=== PATIENT | male | born 1940 | race Caucasian/White ===

== ENCOUNTER → 2018-03-28 | Outpatient (CLI) | payer OTHER ==
[~2018-03-28] MED LIST: ASPEC325 PO; B-CO-25 PO; CHOL100010 PO; CLB200 PO; ESTER C PO; MULTTAB PO; OXYSR10 PO; RXC5 PO; TADA5TAB11 PO; TAMS0.4C38 PO
--- NOTE | 2018-04-11 13:01 | CODING QUERY NO DIAGNOSIS ---
TREATMENT RENDERED WITHOUT A DIAGNOSIS To promote full compliance with coding requirements relating to patient care, physician participation is requested in all cases of skiff operator uncertainty. Please assist us with providing a diagnosis/symptom for the test(s) below: A diagnosis/symptom was not documented on your Order. A valid diagnosis/symptom is required to bill all insurances. Please remember that we are unable to code a diagnosis of rule out, probable, possible, questionable, or suspected. Tests that require a diagnosis: DOS: 03/28/18 * FECAL GLOBIN (INSURE) DIAGNOSIS: Provider Signature: Date: Thank you Miriam Alvarez [employer] Information Management Once completed, please kindly fax back to [phone] For questions please call [phone]
== END | disposition home or self-care (01) ==
LOC: C.LABSPEC 06:54
PROVIDERS: ATTEND Family Medicine
DX: D64.9 Anemia, unspecified (principal)

== ENCOUNTER → 2018-04-06 | Outpatient (CLI) | payer OTHER ==
[2018-04-06 12:33] LABS: BASO % 0.4 %; BASO ABS # 0.02 K/uL (0-0.2); EOS % 2.1 %; EOS ABS # 0.11 K/uL (0-0.5); HEMATOCRIT 34.6 % (42-52); HEMOGLOBIN 11.5 g/dL (14.0-18.0); IG# 0.01 K/uL (0.00-0.02); LYMPH ABS # 1.38 K/uL (1.2-3.4); MEAN CELL VOLUME 88.9 fL (80-100); MEAN CORPUSCULAR HEMOGLOBIN 29.6 pg (25-34); MEAN CORPUSCULAR HGB CONC 33.2 g/dl (32-36); MEAN PLATELET VOLUME 9.9 fL (7.4-10.4); MONO % 8.9 %; MONO ABS # 0.47 K/uL (0.11-0.59); NEUT % 62.4 %; NEUT ABS # 3.31 K/uL (1.4-6.5); PLATELET COUNT 178 K/uL (130-400); RED CELL DISTRIBUTION WIDTH CV 12.9 % (11.5-14.5); RED CELL DISTRIBUTION WIDTH SD 41.3 fL (36.4-46.3)
== END | disposition home or self-care (01) ==
LOC: C.LABMFLN 07:10
PROVIDERS: ATTEND Family Medicine
DX: D64.9 Anemia, unspecified (principal)

== ENCOUNTER 2021-11-09 19:24 | Inpatient (IN) ==
[2021-11-09] MEDS ORDERED: SODIUM CHLORIDE 0.9% 500 ML IV STA (19:56)
[2021-11-09 20:22] LABS: Hematocrit (blood only) 28.5 % (42-52); Hemoglobin 9.4 g/dL (14.0-18.0); Immature Granulocytes # (auto) 0.04 K/uL (0.00-0.02); Immature Granulocytes % (auto) 0.3 %; Lymphocytes # (auto) 0.73 K/uL (1.2-3.4); Lymphocytes % (auto) 5.1 %; Mean Corpuscular Hemoglobin 28.7 pg (25-34); Mean Corpuscular Volume 86.9 fL (80-100); Mean Platelet Volume 8.6 fL (7.4-10.4); Monocytes # (auto) 0.77 K/uL (0.11-0.59); Monocytes % (auto) 5.4 %; Neutrophils # (auto) 12.72 K/uL (1.4-6.5); Neutrophils % (auto) 89.2 %; Platelet Count 228 K/uL (130-400); RDW Coefficient of Variation 13.9 % (11.5-14.5); RDW Standard Deviation 44.5 fL (36.4-46.3); Red Blood Count 3.28 M/uL (4.7-6.1); White Blood Count 14.26 K/uL (4.8-10.8)
--- NOTE | 2021-11-09 20:25 | XRay Report ---
XR chest 1V portable CLINICAL HISTORY: back pain. Evaluate cardiopulmonary status COMPARISON STUDY: 09/03/2015 TECHNIQUE: 1 view of the chest FINDINGS: Single frontal view of the chest demonstrates the cardiomediastinal silhouette to be within normal li mits. The lungs are clear of alveolar opacities. There is no evidence for pleural effusion. There is no evidence for vascular congestion. There is no acute osseous pathology. There are secondary finding s of a chronic rotator cuff tear on the left. IMPRESSION: 1. No acute cardiopulmonary disease. ACT 112: Negative or not required by law. Electronically signed by: Kurt Yost M.D. 11/09/2021 8:24 PM
[2021-11-09 20:46] LABS: Troponin I 0.03 ng/ml (0-0.04)
[2021-11-09] MEDS ORDERED: ACETAMINOPHEN 1,000 MG/100 ML VIAL IV STA (20:52)
[2021-11-09] MEDS ORDERED: PIPERACILLIN/TAZOBACTAM 4.5 GM/120 ML BAG IV ONE (20:56)
[2021-11-09] MEDS ORDERED: PIPERACILL/TAZOBAC CONSULT ACTIVE PRN (20:56)
[2021-11-09 21:05] LABS: Albumin Globulin Ratio 0.8 (0.9-2); Albumin Level 3.3 gm/dl (3.4-5.0); BUN Creatinine Ratio 39.5 (10-20); Bilirubin,Total 0.5 mg/dl (0.2-1.0); Calcium 8.9 mg/dl (8.5-10.1); Creatinine Clr Calc Pharmacy 43.1 ml/min; Est GFR (Non-African American) 61.3 ml/min; Globulin 4.4 gm/dl (2.5-4.0); Total Protein 7.7 gm/dl (6.0-8.3)
[2021-11-09 21:46] LABS: Potassium 4.2 mmol/L (3.5-5.1)
[2021-11-09 22:37] LABS: Appearance Urine Clear (Clear); Bacteria Urine Automated Negative (Negative); Bilirubin Urine Negative (Negative); Blood Urine 2+ (Negative); Cast Urine Automated 0 /lpf (0-5); Color Urine Yellow; Epithelial Cell Urine Auto 0-5 /lpf (0-5); Glucose Urine UA Negative (Negative); Ketones Urine Negative (Negative); Leukocyte Esterase Urine Negative (Negative); Nitrite Urine Negative (Negative); Protein Urine 1+ (Negative); Specific Gravity Urine 1.015 (1.000-1.030); Urobilinogen Urine Negative (Negative)
[2021-11-09] MEDS ORDERED: VANCOMYCIN HCL 1,250 MG in SODIUM CHLORIDE 0.9% 500 ML IV ONE (23:25)
[2021-11-09] MEDS ORDERED: VANCOMYCIN CONSULT ACTIVE PRN (23:25)
[2021-11-09] MEDS ORDERED: MoRPHine SULFATE 2 MG/ML CARP IV STA (23:33)
[2021-11-09] MEDS ORDERED: ONDANSETRON INJ 2 MG/ML 2 ML VIAL IV STA (23:33)
[2021-11-10] MEDS ORDERED: GADOBUTROL 65ML VIAL IV ONE (00:25)
--- NOTE | 2021-11-10 02:47 | Emergency Department Note ---
Impression & Plan Fever, Spinal stenosis, Intractable back pain, Leukocytosis ED Provider Note CHIEF COMPLAINT: Back pain HISTORY OF PRESENT ILLNESS: This 80 yo male patient presents to the emergency department with complaints of back pain across the low back. Patient states he is unable to bear weight. He has had a history of a kidney stone in the past with UTI/sepsis. Patient has been following with his primary care physician for chronic lumbar back pain. He is seeing physical therapy and believes that his pain worsened during his exercises. Patient's daughter arrived in the emergency department and stated that he was seen at an outside facility earlier this morning and had negative x-rays of the lumbar spine performed. He had apparently sustained a fall just prior to that ER visit. Patient states this is becoming increasingly difficult to ambulate. He is noted to be slightly febrile at triage but denies fevers at home. REVIEW OF SYSTEMS: A review of systems was performed with positives and pertinent negatives listed in the history of present illness. 10 systems were reviewed and are otherwise negative. ALLERGIES: see below MEDICATIONS: see below PMH: see below SOCIAL HISTORY: see below DDx: Musculoskeletal, disc herniation, fracture, metastatic disease, cord compression, discitis, sciatica, cauda equina, infection, aortic disease, renal colic, gastrointestinal, as well as other pathologies. PHYSICAL EXAM: Vital signs reviewed. Noted to be febrile General: Somewhat ill-appearing 80-year-old male, no significant distress. HEENT: No scleral icterus, PERRLA, neck supple. Cardiovascular: Regular rate and rhythm, no extra sounds. Pulmonary: Clear to auscultation bilaterally, normal work of breathing. Abdomen: Soft, nontender, nondistended, positive bowel sounds. Musculoskeletal: Atraumatic, no peripheral edema. Nontender to palpation of the lumbar spine. No CVA tenderness. Neurologic: Patient awake alert and oriented x 3 Skin: Warm, dry, no rash EMERGENCY DEPARTMENT COURSE/MDM: This patient was evaluated and appeared to be in some discomfort. IV access was obtained and laboratory work was drawn. An order for cardiac monitoring was placed and the patient is noted to be in a sinus tachycardia. Patient was medicated with IV Tylenol 1000 mg due to a low- grade fever and discomfort. Blood cultures were obtained as well as a lactic acid. Patient's WBC is noted to be elevated at 14, lactate is normal at 1.4. Covid swab was obtained and is negative. IV Zosyn 4.[address] abdomen and pelvis was performed without contrast due to the history of kidney stones and low back pain. The study is negative for obstructive pathology al though a nonobstructive distal ureteral stone cannot be excluded entirely. Patient's urinalysis is negative. Patient sedimentation rate and CRP are markedly elevated. Given the patient's inability to sit up in the bed let alone ambulate without significant discomfort, low-grade fever, leukocytosis and elevated inflammatory markers, MRI of the lumbar spine was performed with and without contrast to rule out infectious etiology. Patient was given IV morphine, Zofran and IV vancomycin was added to the patient's regimen. The study is read as below but is negative for discitis, epidural abscess, osteomyelitis and acute fracture. Patient's daughter has expressed her concerns about ongoing weight loss, weakness and recurrent symptoms. She is concerned about an underlying malignancy. Patient's case was discussed with the hospitalist service, Dr. Lozano who will evaluate the patient for admission and further management. Patient and daughter were made aware of the plans and agreed. MONITORING: An order for cardiac monitoring was placed and the patient is noted to be in a ST at 100 beats per minute. RADIOLOGY: see below EKG: NSR 100bpm, normal ST segments, abnormal P wave axis, normal QTC, no PVC, no PAC. 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 Elevated PSA Surgical History H/O lithotripsy H/O shoulder surgery History of hernia repair History of hip surgery S/P hip replacement Family History Sister Cancer Mother Cancer Father Myocardial infarction Denies family history of Ovarian cancer Prostate cancer Breast cancer Colorectal cancer Social History Smoking Status: Never smoker Second Hand Exposure: No; Hx Alcohol Use: No Hx Substance Use: No marital status: Current Living Situation: Spouse current occupational status: employed current occupation: [employer] How many Children do You have: 3 Feels Safe at Home: Yes Childhood Exposure to Second-Hand Smoke: No Dental Care, Regularly: Yes Physical Activity Frequency: Daily Seatbelt Use: always Sunscreen Use: No Assistive Devices: Denture - Upper, Denture - Lower and Glasses Allergies Allergies Allergy/AdvReac Type Severity Reaction Status Date / Time adhesive Allergy Severe FOAM TAPE Verified 11/09/21 22:17 - RIPPED SKIN OFF Home Meds Home Medications Medication Instructions Recorded Confirmed oxycodone 5 mg tablet 5 mg PO Q6H PRN 11/09/21 11/09/21 tamsulosin 0.4 mg capsule 0.8 mg PO DAILY 11/09/21 11/09/21 Previous Rx's Medication Instructions Recorded ascorbate calcium (vitamin C) 500 500 mg PO DAILY #90 tab 03/15/19 mg tablet aspirin 81 mg tablet,delayed 81 mg PO DAILY #90 tab 03/15/19 release cholecalciferol (vitamin D3) 50 2,000 units PO DAILY #90 tab 03/15/19 mcg (2,000 unit) tablet ferrous gluconate 256 mg (28 mg 256 mg PO DAILY #90 tab 03/15/19 iron) tablet knkbxgis-fmz-ibrpc acid 0.4 1 tab PO DAILY #90 tab 03/15/19 mg-lycopene 300 mcg-lutein 250 mcg tablet (Centrum Silver) vitamin B complex (B Complex 1) 1 tab PO DAILY #90 tab 03/15/19 tadalafil 5 mg tablet 5 mg PO DAILY PRN #90 tab 06/18/21 celecoxib 200 mg capsule 200 mg PO DAILY #90 cap 08/02/21 prednisone 10 mg tablet 10 mg PO .COMPLEX #12 tab 11/04/21 Results & Data (ED) Vital Signs Vital Signs - 24 hr 11/09/21 19:10 11/09/21 20:07 11/09/21 20:56 Temperature 37.7 C H 38 C H 36.4 C L Temperature Source Oral Oral Oral Pulse Rate 103 H Pulse Rate [Left] Respiratory Rate 18 Respiratory Effort / Characteristics Non-Labored Respiratory Depth Normal Blood Pressure 147/79 H Blood Pressure [Right Arm] Blood Pressure Mean 101 Blood Pressure Mean [Right Arm] Pulse Oximetry 98 Oxygen Delivery Method Room Air Sepsis Recent Fever Within 48 Hours Yes Sepsis New/Unexplained Change in Mental Status No Sepsis Action Taken by Nursing No Action Required 11/09/21 22:00 11/10/21 00:52 11/10/21 02:03 Temperature Temperature Source Pulse Rate Pulse Rate [Left] 100 H 87 79 Respiratory Rate 18 18 18 Respiratory Effort / Characteristics Non-Labored Non-Labored Respiratory Depth Normal Normal Blood Pressure Blood Pressure [Right Arm] 109/63 Blood Pressure Mean Blood Pressure Mean [Right Arm] 78 Pulse Oximetry 95 96 94 Oxygen Delivery Method Room Air Room Air Room Air Sepsis Recent Fever Within 48 Hours Sepsis New/Unexplained Change in Mental Status Sepsis Action Taken by [facility] Medications Current Medication List: was personally reviewed by me Laboratory Data Attestation: I reviewed the patient's lab results. Result diagrams: 11/09/21 20:10 11/09/21 21:19 Lab Results 11/09/21 11/09/21 11/09/21 Range/Units 20:10 20:10 21:04 WBC 14.26 H (4.8-10.8) K/uL RBC 3.28 L (4.7-6.1) M/uL Hgb 9.4 L (14.0-18.0) g/dL Hct 28.5 L (42-52) % MCV 86.9 (80-100) fL MCH 28.7 (25-34) pg MCHC 33.0 (32-36) g/dL RDW Std Deviation 44.5 (36.4-46.3) fL RDW Coeff of Víctor 13.9 (11.5-14.5) % Plt Count 228 (130-400) K/uL MPV 8.6 (7.4-10.4) fL Immature Gran % (Auto) 0.3 % Neut % (Auto) 89.2 % Lymph % (Auto) 5.1 % [place] % (Auto) 5.4 % Eos % (Auto) 0.0 % Baso % (Auto) 0.0 % Neut # (Auto) 12.72 H (1.4-6.5) K/uL Lymph # (Auto) 0.73 L (1.2-3.4) K/uL [place] # (Auto) 0.77 H (0.11-0.59) K/uL Eos # (Auto) 0.00 (0-0.5) K/uL Baso # (Auto) 0.00 (0-0.2) K/uL Immature Gran # (Auto) 0.04 H (0.00-0.02) K/uL ESR (0-20) mm/hr Sodium 133 L (136-145) mmol/L Potassium (3.5-5.1) mmol/L Chloride 97 L (98-107) mmol/L Carbon Dioxide 28 (21-32) mmol/L Anion Gap 8 (3-11) BUN 45 H (6-23) mg/dl Creatinine 1.14 (0.6-1.4) mg/dl Est Cr Clr Drug Dosing 43.1 ml/min Est GFR ( Amer) 71.0 ml/min Est GFR (Non-Af Amer) 61.3 ml/min BUN/Creatinine Ratio 39.5 H (10-20) Glucose 100 H (70-99(Fasting)) mg/dl Lactate (0.4-2.0) mmol/L Calcium 8.9 (8.5-10.1) mg/dl Total Bilirubin 0.5 (0.2-1.0) mg/dl AST (13-39) U/L ALT 42 (7-52) U/L Alkaline Phosphatase 146 H (34-104) U/L Troponin I 0.03 (0-0.04) ng/ml C-Reactive Protein (0-0.5) mg/dl Total Protein 7.7 (6.0-8.3) gm/dl Albumin 3.3 L (3.4-5.0) gm/dl Globulin 4.4 H (2.5-4.0) gm/dl Albumin/Globulin Ratio 0.8 L (0.9-2) Lipase 4 L (11-82) U/L Urine Color Urine Appearance (Clear) Urine pH (4.5-7.5) Ur Specific [place] (1.000-1.030) Urine Protein (Negative) Urine Glucose (UA) (Negative) Urine Ketones (Negative) Urine Blood (Negative) Urine Nitrite (Negative) Urine Bilirubin (Negative) Urine Urobilinogen (Negative) Ur Leukocyte Esterase (Negative) Urine WBC (Auto) (0-5) /hpf Urine RBC (Auto) (0-4) /hpf U Hyaline Cast (Auto) (0-5) /lpf U Epithel Cells (Auto) (0-5) /lpf Urine Bacteria (Auto) (Negative) SARS-CoV-2, RNA, NAAT NEGATIVE (NEGATIVE) 11/09/21 11/09/21 11/09/21 Range/Units 21:19 21:19 21:19 WBC (4.8-10.8) K/uL RBC (4.7-6.1) M/uL Hgb (14.0-18.0) g/dL Hct (42-52) % MCV (80-100) fL MCH (25-34) pg MCHC (32-36) g/dL RDW Std Deviation (36.4-46.3) fL RDW Coeff of Víctor (11.5-14.5) % Plt Count (130-400) K/uL MPV (7.4-10.4) fL Immature Gran % (Auto) % Neut % (Auto) % Lymph % (Auto) % [place] % (Auto) % Eos % (Auto) % Baso % (Auto) % Neut # (Auto) (1.4-6.5) K/uL Lymph # (Auto) (1.2-3.4) K/uL [place] # (Auto) (0.11-0.59) K/uL Eos # (Auto) (0-0.5) K/uL Baso # (Auto) (0-0.2) K/uL Immature Gran # (Auto) (0.00-0.02) K/uL ESR 52 H (0-20) mm/hr Sodium (136-145) mmol/L Potassium 4.2 (3.5-5.1) mmol/L Chloride (98-107) mmol/L Carbon Dioxide (21-32) mmol/L Anion Gap (3-11) BUN (6-23) mg/dl Creatinine (0.6-1.4) mg/dl Est Cr Clr Drug Dosing ml/min Est GFR ( Amer) ml/min Est GFR (Non-Af Amer) ml/min BUN/Creatinine Ratio (10-20) Glucose (70-99(Fasting)) mg/dl Lactate 1.4 (0.4-2.0) mmol/L Calcium (8.5-10.1) mg/dl Total Bilirubin (0.2-1.0) mg/dl AST 25 (13-39) U/L ALT (7-52) U/L Alkaline Phosphatase (34-104) U/L Troponin I (0-0.04) ng/ml C-Reactive Protein (0-0.5) mg/dl Total Protein (6.0-8.3) gm/dl Albumin (3.4-5.0) gm/dl Globulin (2.5-4.0) gm/dl Albumin/Globulin Ratio (0.9-2) Lipase (11-82) U/L Urine Color Urine Appearance (Clear) Urine pH (4.5-7.5) Ur Specific [place] (1.000-1.030) Urine Protein (Negative) Urine Glucose (UA) (Negative) Urine Ketones (Negative) Urine Blood (Negative) Urine Nitrite (Negative) Urine Bilirubin (Negative) Urine Urobilinogen (Negative) Ur Leukocyte Esterase (Negative) Urine WBC (Auto) (0-5) /hpf Urine RBC (Auto) (0-4) /hpf U Hyaline Cast (Auto) (0-5) /lpf U Epithel Cells (Auto) (0-5) /lpf Urine Bacteria (Auto) (Negative) SARS-CoV-2, RNA, NAAT (NEGATIVE) 11/09/21 11/09/21 Range/Units 21:19 22:19 WBC (4.8-10.8) K/uL RBC (4.7-6.1) M/uL Hgb (14.0-18.0) g/dL Hct (42-52) % MCV (80-100) fL MCH (25-34) pg MCHC (32-36) g/dL RDW Std Deviation (36.4-46.3) fL RDW Coeff of Víctor (11.5-14.5) % Plt Count (130-400) K/uL MPV (7.4-10.4) fL Immature Gran % (Auto) % Neut % (Auto) % Lymph % (Auto) % [place] % (Auto) % Eos % (Auto) % Baso % (Auto) % Neut # (Auto) (1.4-6.5) K/uL Lymph # (Auto) (1.2-3.4) K/uL [place] # (Auto) (0.11-0.59) K/uL Eos # (Auto) (0-0.5) K/uL Baso # (Auto) (0-0.2) K/uL Immature Gran # (Auto) (0.00-0.02) K/uL ESR (0-20) mm/hr Sodium (136-145) mmol/L Potassium (3.5-5.1) mmol/L Chloride (98-107) mmol/L Carbon Dioxide (21-32) mmol/L Anion Gap (3-11) BUN (6-23) mg/dl Creatinine (0.6-1.4) mg/dl Est Cr Clr Drug Dosing ml/min Est GFR ( Amer) ml/min Est GFR (Non-Af Amer) ml/min BUN/Creatinine Ratio (10-20) Glucose (70-99(Fasting)) mg/dl Lactate (0.4-2.0) mmol/L Calcium (8.5-10.1) mg/dl Total Bilirubin (0.2-1.0) mg/dl AST (13-39) U/L ALT (7-52) U/L Alkaline Phosphatase (34-104) U/L Troponin I (0-0.04) ng/ml C-Reactive Protein 27.37 H (0-0.5) mg/dl Total Protein (6.0-8.3) gm/dl Albumin (3.4-5.0) gm/dl Globulin (2.5-4.0) gm/dl Albumin/Globulin Ratio (0.9-2) Lipase (11-82) U/L Urine Color Yellow Urine Appearance Clear (Clear) Urine pH 5.0 (4.5-7.5) Ur Specific [place] 1.015 (1.000-1.030) Urine Protein 1+ H (Negative) Urine Glucose (UA) Negative (Negative) Urine Ketones Negative (Negative) Urine Blood 2+ H (Negative) Urine Nitrite Negative (Negative) Urine Bilirubin Negative (Negative) Urine Urobilinogen Negative (Negative) Ur Leukocyte Esterase Negative (Negative) Urine WBC (Auto) 1-5 (0-5) /hpf Urine RBC (Auto) 5-10 H (0-4) /hpf U Hyaline Cast (Auto) 0 (0-5) /lpf U Epithel Cells (Auto) 0-5 (0-5) /lpf Urine Bacteria (Auto) Negative (Negative) SARS-CoV-2, RNA, NAAT (NEGATIVE) Administered Medications Discontinued Medications Gadobutrol (Gadobutrol 65ml Vial) 5.6 ml IV ONCE ONE Stop: 11/10/21 00:26 Last Admin: 11/10/21 00:25 Dose: 5.6 ml Documented by: [id number] Sodium Chloride (Nss) 500 mls @ 999 mls/hr IV .Q31M STA Stop: 11/09/21 20:26 Last Infusion: 11/09/21 21:10 Dose: 0 mls/hr Documented by: [id number] Admin: 11/09/21 20:33 Dose: 999 mls/hr Documented by: [id number] Acetaminophen (Ofirmev) 1,000 mg in 100 mls @ 400 mls/hr IV NOW STA Stop: 11/09/21 21:06 Last Infusion: 11/09/21 22:05 Dose: 0 mls/hr Documented by: [id number] Admin: 11/09/21 21:45 Dose: 400 mls/hr Documented by: [id number] Piperacillin Sod/Tazobactam Sod (Zosyn) 4.5 gm in 120 mls @ 240 mls/hr IV NOW ONE Stop: 11/09/21 21:25 Last Infusion: 11/09/21 23:04 Dose: 0 mls/hr Documented by: [id number] Admin: 11/09/21 22:07 Dose: 240 mls/hr Documented by: [id number] Vancomycin HCl 1,250 mg/ (Sodium Chloride) 525 mls @ 200 mls/hr IV NOW ONE Stop: 11/10/21 02:02 Last Admin: 11/10/21 00:51 Dose: 200 mls/hr Documented by: [id number] Morphine Sulfate (Morphine Sulfate 2 Mg/Ml Carp) 2 mg IV NOW STA Stop: 11/09/21 23:34 Last Admin: 11/09/21 23:37 Dose: 2 mg Documented by: [id number] Ondansetron HCl (Ondansetron Inj 2 Mg/Ml 2 Ml Vial) 4 mg IV NOW STA Stop: 11/09/21 23:34 Last Admin: 11/09/21 23:37 Dose: 4 mg Documented by: [id number] Imaging Data Radiologist's Impression: Chest X-Ray 11/09/21 19:56 XR chest 1V portable CLINICAL HISTORY: back pain. Evaluate cardiopulmonary status COMPARISON STUDY: 09/03/2015 TECHNIQUE: 1 view of the chest FINDINGS: Single frontal view of the chest demonstrates the cardiomediastinal silhouette to be within normal limits. The lungs are clear of alveolar opacities. There is no evidence for pleural effusion. There is no evidence for vascular congestion. There is no acute osseous pathology. There are secondary findings of a chronic rotator cuff tear on the left. IMPRESSION: 1. No acute cardiopulmonary disease. ACT 112: Negative or not required by law. Electronically signed by: Kurt Yost M.D. 11/09/2021 8:24 PM Chest X-Ray 11/09/21 19:56 XR chest 1V portable CLINICAL HISTORY: back pain. Evaluate cardiopulmonary status COMPARISON STUDY: 09/03/2015 TECHNIQUE: 1 view of the chest FINDINGS: Single frontal view of the chest demonstrates the cardiomediastinal silhouette to be within normal limits. The lungs are clear of alveolar opacities. There is no evidence for pleural effusion. There is no evidence for vascular congestion. There is no acute osseous pathology. There are secondary findings of a chronic rotator cuff tear on the left. IMPRESSION: 1. No acute cardiopulmonary disease. ACT 112: Negative or not required by law. Electronically signed by: Kurt Yost M.D. 11/09/2021 8:24 PM Preliminary Findings Only See Final Report For Complete Findings CT ABDOMEN & PELVIS Without Contrast: There is a 1.5 cm calcified gallstone in the dependent portion of a distended but nondilated gallbladder. No obvious pericholecystic inflammation is seen. No biliary duct dilation is identified or choledocholith iasis. The kidneys appear within normal limits. No hydronephrosis is identified. There are several calcifications in the pelvis which are mostly obscured by severe streak artifact from bilateral hip arthroplasties. A nonobstructive distal ureteral calculus cannot be excluded. Bowel loops are nondilated. There is diverticulosis of the lower left and sigmoid colon without signs of acute diverticulitis. No pneumoperitoneum or free fluid is seen. Moderate to severe multilevel degenerative changes throughout the lumbar spine. No acute fracture or traumatic subluxation is seen. Radiologist: Hipolito Cuevas MD Study ready at 22:02 and initial results transmitted at 22:19 Preliminary Findings Only See Final Report For Complete Findings MRI L SPINE : Compared with CT abdomen pelvis done earlier. Moderate central spinal stenosis L4-5, degenerative, including enhancing facet joints, likely inflammatory arthritis. Severe bilateral foraminal stenosis L3-4, L4-5, L5-S1. Severe disc space narrowing, disc bulge and osteophyte L1-2, through L5-S1. Moderate to severe facet hypertrophy, no synovial cyst formation. No isolated disc extrusion or other level of central spinal stenosis. No marrow edema or compression deformity. No abnormal enhancement, discitis, osteomyelitis or epidural abscess. Radiologist: Yaquelin Hwang M.D. Study ready at 00:54 and initial results transmitted at 02:09 ECG Data Attestation: I personally reviewed and interpreted this ECG as follows: Blood Pressure Blood Pressure Findings: Normal blood pressure Blood Pressure Disposition: did not require urgent referral Discharge Plan Visit Data Chief Complaint: Back Injury/Pain Stated Complaint: Back Pain ED Provider: Samantha Bowles Discharge Problem: Fever, Spinal stenosis, Intractable back pain, Leukocytosis Patient Disposition: Admitted As Inpatient Forms Stand Alone Forms: My [facility], Virtual Emergency Department, Important Visit Information Prescriptions Prescriptions: No Action celecoxib 200 mg capsule 200 mg PO DAILY Qty: 90 RF: 0 prednisone 10 mg tablet 10 mg PO .COMPLEX Qty: 12 RF: 0 ascorbate calcium (vitamin C) 500 mg tablet 500 mg PO DAILY Qty: 90 RF: 3 aspirin 81 mg tablet,delayed release (DR/EC) 81 mg PO DAILY Qty: 90 RF: 3 cholecalciferol (vitamin D3) 2,000 unit tablet 2,000 units PO DAILY Qty: 90 RF: 3 ferrous gluconate 256 mg (28 mg iron) tablet 256 mg PO DAILY Qty: 90 RF: 3 Centrum Silver 0.4-300-250 mg-mcg-mcg tablet 1 tab PO DAILY Qty: 90 RF: 3 vitamin B complex [B Complex 1] tablet 1 tab PO DAILY Qty: 90 RF: 3 tadalafil 5 mg tablet 5 mg PO DAILY PRN (Reason: sexual activity) Qty: 90 RF: 0 tamsulosin 0.4 mg capsule 0.8 mg PO DAILY RF: 0 oxycodone 5 mg tablet 5 mg PO Q6H PRN (Reason: Pain) RF: 0 Referrals Referrals: Cr Adams DO [Primary Care Provider] - Discharge Problem: Fever Qualifiers: Fever type: due to other condition Qualified Code(s): R50.81 - Fever presenting with conditions classified elsewhere Spinal stenosis Qualifiers: Spinal region: lumbar Neurogenic claudication status: with neurogenic claudication Qualified Code(s): M48.062 - Spinal stenosis, lumbar region with neurogenic claudication Leukocytosis Qualifiers: Leukocytosis type: unspecified Qualified Code(s): D72.829 - Elevated white blood cell count, unspecified
--- NOTE | 2021-11-10 03:16 | History & Physical Report ---
Date of Service November 10, 2021 Assessment & Plan (1) Fever: Plan: Patient presents with fever back pain and similar symptom complex from his previous MSSA bacteremia x2. Patient has blood and urine cultures collected imaging of his abdomen pelvis ruled out abscess or focal origins of infection both ESR and CRP are elevated we will continue vancomycin and Zosyn started by the ER waiting for culture results can consider infectious disease consultation as they have previously seen the patient during his admission in [place] and August 2021 We will also start with a transthoracic echocardiogram but may need to push to a transesophageal if there is concern for infection With regard to his gallstones there is no elevation of his LFTs or abdominal imaging with regard to a CT scan to suggest cholecystitis as a source (2) Intractable back pain: Plan: There is no obvious origin of his back pain from infectious etiologies but he does have arthritic change and spinal stenosis to explain the pain patient will have nonopioids attempt to control his back pain we may have our spinal surgeon look at his films for review and certainly our radiologist will review the stat read report Of note his primary care physician did start him on prednisone therapy to try to help with back pain. 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 (5) DVT prophylaxis: Plan: Heparin will be used for DVT prevention Plan: Patient is a full code History of Present Illness Primary Care Provider: Cr Adams DO 80-year-old male presents with the company of his daughter with worsening back pain to the degree where he is having difficulty ambulating, low-grade temperature decreased appetite and weight loss. Patient was well until May 2021 where he was admitted to [facility] with fever and sepsis with at this still insensitive staph aureus originating from urinary tract infection with right-sided ureteral obstruction requiring a stent to be placed. At that time he was treated with both IV and oral antibiotics for greater than 14-day course. During his hospital stay he had a transthoracic echocardiogram which was negative for endocarditis and did have a PICC line placed Patient represented to [place] [facility] August 03, 2021 with worsening back pain with his history blood cultures were obtained and he was later called back to report to the hospital with recurrent culture positive for MSSA he was readmitted to [facility] August 07, 2021 he was discharged August 13 with a diagnosis of MSSA bacteremia. Gallstones without cholecystitis. BPH, during that hospital stay he had an infectious disease consultation also saw hematology oncology for his history of anemia, infectious disease recommended a 6-week course of Ancef last dose September 17, 2021. Both admissions he had images of his back as he did complain of back pain and there is no mention of osteomyelitis discitis transverse myelitis etc. Was felt that likely the source was urinary on both occasions. And both occasions they felt that endocarditis was ruled out. Patient was again presents now to [facility] with similar complaints of back pain inability to ambulate and anorexia with weight loss. Patient states that he is urine is dark yellow there is no dysuria he has decreased stool output but no complaints of particular constipation he has no tenderness or discomfort to any of his artificial joints which includes both hips and right shoulder. In the ER a temperature of 100.4 white count of 14,000 and elevation of in flammatory markers. Blood cultures were obtained and vancomycin and Zosyn was administered by emergency department physician. Imaging study including CT abdomen pelvis and MRI of his lumbar spine once again were without direct identification of an infectious source Covid testing is negative Initial UA is with red cells and blood negative leukocyte esterase negative nitrates Allergies Allergy/AdvReac Type Severity Reaction Status Date / Time adhesive Allergy Severe FOAM TAPE Verified 11/09/21 22:17 - RIPPED SKIN OFF Home Medications Medication Instructions Recorded Confirmed Type ascorbate calcium (vitamin C) 500 500 mg PO DAILY #90 tab 03/15/19 11/09/21 Rx mg tablet aspirin 81 mg tablet,delayed 81 mg PO DAILY #90 tab 03/15/19 11/09/21 Rx release cholecalciferol (vitamin D3) 50 2,000 units PO DAILY #90 tab 03/15/19 11/09/21 Rx mcg (2,000 unit) tablet ferrous gluconate 256 mg (28 mg 256 mg PO DAILY #90 tab 03/15/19 11/09/21 Rx iron) tablet inzfoqil-fmb-dkjlb acid 0.4 1 tab PO DAILY #90 tab 03/15/19 11/09/21 Rx mg-lycopene 300 mcg-lutein 250 mcg tablet (Centrum Silver) vitamin B complex (B Complex 1) 1 tab PO DAILY #90 tab 03/15/19 11/09/21 Rx tadalafil 5 mg tablet 5 mg PO DAILY PRN #90 tab 06/18/21 11/09/21 Rx celecoxib 200 mg capsule 200 mg PO DAILY #90 cap 08/02/21 11/09/21 Rx prednisone 10 mg tablet 10 mg PO .COMPLEX #12 tab 11/04/21 11/09/21 Rx oxycodone 5 mg tablet 5 mg PO Q6H PRN 11/09/21 11/09/21 History tamsulosin 0.4 mg capsule 0.8 mg PO DAILY 11/09/21 11/09/21 History Past Med/Surg History Medical History Anemia Arthritis BPH with obstruction/lower urinary tract symptoms Elevated PSA Surgical History H/O lithotripsy H/O shoulder surgery History of hernia repair History of hip surgery S/P hip replacement Family History Sister Cancer Mother Cancer Father Myocardial infarction Denies family history of Ovarian cancer Prostate cancer Breast cancer Colorectal cancer Social History Smoking Status: Never smoker Second Hand Exposure: No; Hx Alcohol Use: No Hx Substance Use: No Communication Ability: Effective Ash Collector Required: No Beliefs That Will Affect Care: None marital status: Current Living Situation: Spouse current occupational status: employed current occupation: [employer] How many Children do You have: 3 Other Information That Helps Us Care for You: No Feels Safe at Home: Yes Safety Concerns: Feels Safe At This Time Childhood Exposure to Second-Hand Smoke: No Dental Care, Regularly: Yes Physical Activity Frequency: Daily Seatbelt Use: always Sunscreen Use: No Assistive Devices: Denture - Upper, Denture - Lower, Glasses and Walker Review of Systems Review of Systems: Moderate distress and fatigue no headache, no visual changes no speech or swallowing issues no chest pain, pressure or palpitations no shortness of breath, cough or wheezes no abdominal pain, nausea or vomiting, anorexia and constipation no dysuria, hematuria or frequency complains of darkening of urine color no focal joint pain or swelling Significant central lower back pain, without CVA tenderness or radicular pain no bruising, bleeding or rashes no focal signs of weakness or numbness or altered sensation no complaints of anxiety or depression.. Physical Exam Physical Exam: The patient appeared well nourished and normally developed. Vital signs as documented. Head exam is normocephalic atraumatic Neck is without JVD, thyromegaly, or carotid bruits. Lungs are clear to auscultation, no focal loss of breath sounds Cardiac exam, Rhythm is regular.. No murmurs, rubs or gallops. Abdominal exam reveals normal bowel sounds, soft non tender, no masses Extremities are nonedematous and both pedal pulses are present Negative straight leg raising intact distal sensation reproducible point tenderness to the central back in the lumbar region Neurologic exam is alert and oriented, no focal loss of strength or sensation Skin is without bruises or rashes no peripheral stigmata of endocarditis Psychologically is without concerns for anxiety or depression.. Results & Data Results & Data ([facility]) Vital Signs (Past 12 Hours) Vital Signs Temp Pulse Pulse Resp BP BP Pulse Ox 11/10/21 02:03 79 18 94 11/10/21 00:52 87 18 96 11/09/21 22:00 100 H 18 109/63 95 11/09/21 20:56 97.5 F L 11/09/21 20:07 100.4 F H 11/09/21 19:10 99.9 F H 103 H 18 147/79 H 98 Diagnostic Findings Chest X-Ray 11/09/21 19:56 XR chest 1V portable IMPRESSION: 1. No acute cardiopulmonary disease. CT scan abdomen pelvis 11/09/2021 impression gallstone nondilated gallbladder no signs of choledocholithiasis or cholecystitis. Kidneys are normal diverticulosis without diverticulitis no pneumoperitoneum MRI of the lumbar spine performed 11/09/2021 impression, moderate central spinal stenosis L4-5 formation of the facet joints consistent with inflammatory arthritis. No abnormal enhancements discitis osteomyelitis or epidural abscess seen PG Care Time/CCT Total # of Minutes Spent Total Time Spent with Patient: Total time spent is greater than 50% in coordination of care (as documented) at patient's floor/unit and/or counseling patient: Coding Level of Care Code 18140 Initial Inpt Care Lvl 3 Diagnoses Intractable back pain M54.9 Fever R50.81 Fever type: due to other condition BPH with obstruction/lower urinary tract symptoms N40.1; N13.8 Anemia D64.9 DVT prophylaxis Z29.9 (1) Fever Fever type: due to other condition Qualified Code(s): R50.81 - Fever presenting with conditions classified elsewhere
[2021-11-10] MEDS ORDERED: ONDANSETRON INJ 2 MG/ML 2 ML VIAL IV PRN (05:14)
[2021-11-10] MEDS ORDERED: ACETAMINOPHEN 325 MG TAB PO PRN (05:14)
[2021-11-10] MEDS ORDERED: ALUMINUM/MAGNESIUM SUSP 30 ML UDC PO PRN (05:14)
[2021-11-10] MEDS: MoRPHine SULFATE 2 MG/ML CARP IV PRN ×2 (05:28→19:51)
[2021-11-10] MEDS ORDERED: PIPERACILLIN/TAZOBACTAM 3.375 GM in DEXTROSE 5% 100 ML IV SCH ×2 (06:00→22:00)
[2021-11-10 06:56] LABS: Ferritin 502.9 ng/ml (8-388)
--- NOTE | 2021-11-10 07:48 | History & Physical Bridge Note ---
Date of Service November 10, 2021 History & Physical Bridge Note Admitted post midnight; chart reviewed, H&P noted, patient assessed. Quite lethargic and drowsy, barely moving neck Some nuchal rigidity, low back pain with spasms Exam: Mildly slurred speech Medical decision making: Consider meningitistreat as such; await MRI spine and if no local infection lumbar puncture Await other studies, pending same will consider ID consult N.p.o. till seen by speech IV fluids
[2021-11-10] MEDS ORDERED: cefTRIAXone SODIUM 2,000 MG in DEXTROSE 5% 50 ML IV SCH (08:00)
--- NOTE | 2021-11-10 08:08 | Magnetic Resonance Report ---
MR lumbar spine wo/w con CLINICAL HISTORY: fever, weakness, intractable low back pain. TECHNIQUE: Multiplanar multisequence images of the Lumbar Spine were performed with and without IV c ontrast. Contrast Volume: 5.6 ml of Gadavist COMPARISON: None. FINDINGS: Minimal old anterior wedge deformities are present involving T12 and L1. There is no evide nce for an acute fracture. The heights of the remaining lumbar vertebral bodies are maintained. There is degenerative grade 1/4 spondylolisthesis of L5 on S1. The remaining vertebral bodies are in anatomic alignment. Minimal discogenic changes are present involving the adjacent vertebral body endp lates at L5-S1. There is otherwise homogeneous marrow signal is seen without evidence for marrow ricky a or marrow replacement. There is no abnormal enhancement following contrast administration. T12-L1: There is moderate to marked disc space narrowing with diffuse bulging of the annulus present. There are no focal disc protrusions or extrusions identified. There is minimal flattening of theca l sac anteriorly. The neural foramen are patent bilaterally. There is no evidence for nerve root encr oachment. The facet joints are within normal limits. L1-2: There is marked disc space narrowing with diffuse bulging of the annulus present. There are no focal disc protrusions or extrusions identified. There is minimal flattening of thecal sac anterior ly and asymmetric encroachment upon the right neural foramen when compared to the left. There is no e vidence for nerve root encroachment. The facet joints are within normal limits. L2-3: There is moderate to marked disc space narrowing present with diffuse bulging annulus seen. Th ere are no focal disc protrusions or extrusions identified. There is flattening of thecal sac anteri cassidy and encroachment upon the origins of the neural foramen bilaterally . There is no evidence for n erve root encroachment. The facet joints are within normal limits. L3-4: There is marked disc space narrowing with diffuse bulging of the annulus present. There are no focal disc protrusions or extrusions identified. There is flattening of thecal sac anteriorly and m ild asymmetric encroachment upon the left neural foramen when compared to the right. There is no evid ence for nerve root encroachment. There is mild hypertrophic facet joint disease present bilaterally. L4-5: There is marked disc space narrowing with diffuse bulging of the annulus present. The thecal sa c and epidural fat are maintained. There is flattening of the thecal sac anteriorly and encroachment upon the neural foramen bilaterally. Moderate hypertrophic facet joint disease with thickening of the ligamentum flavum is also present bilaterally. The combination of these findings produce moderate t o marked central canal stenosis and bilateral foraminal stenosis, left greater than right . This im pinges upon the left L4 nerve root within the neural foramen. L5-S1: There is marked disc space narrowing with diffuse bulging of annulus present. There are no fo manuel disc protrusions or extrusions identified. Due to the increase amount of epidural fat anterior t o the thecal sac at this level, there is only minimal flattening of the thecal sac without impingemen t. There is encroachment upon the neural foramen bilaterally. Moderate to marked hypertrophic facet j oint disease is present with thickening of ligamentum flavum bilaterally. While there is no significa nt central canal stenosis, there is evidence for marked bilateral foraminal stenosis. There is eviden ce for impingement upon the L5 nerve roots within the neural foramen bilaterally. IMPRESSION: 1. 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 2. There is segmental central canal and foraminal stenosis present particularly at the lower 2 disc s pace levels as described above. 3. There is evidence for nerve root encroachment at these 2 disc space levels. ACT 112: Negative or not required by law. Electronically signed by: Kurt Yost M.D. 11/10/2021 8:07 AM
--- NOTE | 2021-11-10 08:19 | CT Scan Report ---
ABDOMEN AND PELVIS CT WITHOUT CONTRAST CT DOSE: 268.32 mGy.cm HISTORY: L flank pain TECHNIQUE: Multiaxial CT images of the abdomen and pelvis were performed without contrast. A dose lo wering technique was utilized adhering to the principles of ALARA. COMPARISON STUDY: None. FINDINGS: Mild dependent changes at the lung bases. There is a moderate hiatus hernia. Mild motion ar tifact. There are bilateral total hip arthroplasties. No fractures within the visualized osseous stru ctures. Severe disc space narrowing with mild endplate irregularity and sclerosis at L5-S1. There is also grade 1 anterolisthesis at L5 on S1. Although nonspecific this favors a chronic process such as long-standing degenerative change. Additional areas of moderate to severe disc space narrowing within the lumbar spine. There are old, healed left-sided rib fractures. The gallbladder is mildly distende d. No gallbladder wall thickening. There are few punctate calcified granuloma seen within the liver a nd spleen. The adrenal glands are within normal limits. The pancreas is not well visualized due to th e motion artifact. No retroperitoneal lymphadenopathy. Normal caliber abdominal aorta. There is a pun ctate stone within the lower pole of the left kidney. No right renal calculi. No hydronephrosis. The ureters are not well visualized due to the motion artifact. The distal ureters are obscured by the me tallic artifact. No definite ureteral calculi. No definite bladder wall thickening. Near nondiagnosti c evaluation for bowel pathology due to the lack of intravenous and oral contrast as well as the darin on artifact. However, there is no definite bowel wall thickening or obstruction. Colonic diverticulos is. No evidence for acute diverticulitis. IMPRESSION: 1. Difficult evaluation of the abdomen and pelvis due to the lack of contrast and the motion artifact . 2. Left-sided nephrolithiasis. No definite ureteral stones. No hydronephrosis. 3. No definite bowel wall thickening or obstruction. 4. Colonic diverticulosis. No evidence for acute diverticulitis. 5. Moderate hiatus hernia. 6. Severe disc space narrowing with mild endplate irregularity and sclerosis at L5-S1. There is also grade 1 anterolisthesis at L5 on S1. Although nonspecific this favors a chronic process such as long- standing degenerative change. This will be better appreciated on the same day lumbar spine MRI. ACT 112: Negative or not required by law. Electronically signed by: Tyrone Higgins M.D. 11/10/2021 8:18 AM
--- NOTE | 2021-11-10 08:49 | Pharmacy Report ---
Pharmacy Vanc AUC Short Note - Date of Service November 10, 2021 - Assessment & Plan Assessment 80 year old M who presented with fever and back pain. h/o MSSA bacteremia x 2. Empiric vancomycin and pip-tazo initiated. Upon further follow up patient was found to be lethargic and drowsy with nuchal rigidity and low back pain with spasms. MRI of spine ordered. Antibiotic coverage was altered to cover for possible meningitics; vanco, ceftriaxone, ampicillin. BC pending Plan Vancomycin * Loading dose: 1250 mg * Maintenance dose: 1000 mg (17.5 mg/kg) IV every 24 hours * This regimen is predicted to achieve target AUC/CECILIO of 400-600 mg/L.hr * AUC/CECILIO is the preferred PK/PD target for vancomycin * AUC guided dosing is effective and associated with decreased risk of nephrotoxicity compared to traditional trough targets * Trough level will be ordered if vanco is continued beyond 48 hours (ordered as empiric) Pharmacy will continue to follow and will adjust dose/frequency as necessary. Thank you.
[2021-11-10] MEDS ORDERED: OPTIRAY 320 100ml IV ONE (08:56)
[2021-11-10] MEDS ORDERED: CEROVITE ADV FORMULA TAB PO SCH (09:00)
[2021-11-10] MEDS ORDERED: HEPARIN SOD 5,000 UNIT/0.5 ML VIAL SQ SCH (09:00)
[2021-11-10] MEDS ORDERED: FERROUS GLUCONATE PO SCH (09:00)
[2021-11-10] MEDS ORDERED: ASCORBIC ACID 500 MG TAB PO SCH (09:00)
[2021-11-10] MEDS ORDERED: AMPICILLIN 2,000 MG in SODIUM CHLOR 0.9% AD-VAN 100 ML IV SCH ×2 (09:00→16:00)
[2021-11-10] MEDS ORDERED: CHOLECALCIFEROL 1,000 UNITS 25 MCG TAB PO SCH (09:00)
[2021-11-10] MEDS ORDERED: VITAMIN B COMPLEX TAB PO SCH (09:00)
--- NOTE | 2021-11-10 09:00 | Electrocardiogram Report ---
Test Reason : Blood Pressure : / mmHG Vent. Rate : 100 BPM Atrial Rate : 100 BPM P-R Int : 156 ms QRS Dur : 092 ms QT Int : 312 ms P-R-T Axes : 000 054 074 degrees QTc Int : 402 ms Poor data quality, interpretation may be adversely affected Normal sinus rhythm Moderate voltage criteria for LVH, may be normal variant Borderline ECG When compared with ECG of 03-SEP-2015 14:09, VT interval has decreased Confirmed by Santy Alejandro ([id number]) on 11/10/2021 9:00:27 AM Referred By: REFERRED SELF Confirmed By:Santy Alejandro
--- NOTE | 2021-11-10 09:30 | CT Scan Report ---
CT head/brain wo/w con HISTORY: fever, lethargy TECHNIQUE: Multiaxial CT images the head were performed both before and after the intravenous adminis tration of 94 cc of Optiray 320. COMPARISON STUDY: None. FINDINGS: The mastoid air cells are clear. There are few opacified right posterior ethmoid air cells and partial opacification of the left sphenoid sinus. This is likely chronic. No fluid levels identif ied within the paranasal sinuses. The calvarium and skull base are intact. The ventricles and sulci d emonstrate mild age-related involutional changes. There is no mass, hematoma, midline shift, acute in farct. No abnormal enhancement. Periventricular white matter hypodensity is nonspecific but favors mi ld microvascular ischemic change. The orbits are unremarkable. IMPRESSION: 1. No acute intracranial abnormality. 2. Atrophy and microvascular ischemic changes, likely age-related. ACT 112: Negative or not required by law. Electronically signed by: Tyrone Higgins M.D. 11/10/2021 9:28 AM
[2021-11-10] MEDS: LIDOCAINE 5% 1 PATCH TD SCH (09:53)
[2021-11-10] MEDS: TAMSULOSIN HCL 0.4 MG CAP PO SCH (09:54)
[2021-11-10] MEDS: SODIUM CHLORIDE 0.9% 1000ML 1,000 ML IV SCH ×2 (09:55→20:08)
[2021-11-10 10:37] LABS: INR 1.1 (0.9-1.1); Prothrombin Time 11.5 Seconds (9.0-12.0)
--- NOTE | 2021-11-10 10:38 | XCELERA ---
[id number]
--- NOTE | 2021-11-10 14:12 | Fluoroscopy Report ---
FL lumbar puncture diagnostic CLINICAL HISTORY: 80 years-old Male with fever, nuchal rigidity, altered mental status. Acute fever with altered mental status PROCEDURE: The risks, benefits, and alternatives to the procedure is discussed with the patient who v oiced understanding. Written informed consent was obtained. The patient was placed prone on the fluor oscopy table. The lower back was prepped and draped in the usual sterile fashion. 1% lidocaine was us ed for local anesthesia. A 20-gauge spinal needle was inserted into the L1-L2 interlaminar space, and approximately 10 cc of clear colorless cerebrospinal fluid was removed. The patient tolerated the pr ocedure well. There were no immediate complications. The patient was then transported to the medical treatment unit for further observation. Fluoroscopy time: 0.8 IMPRESSION: Fluoroscopic guided lumbar puncture with removal of approximately 10 cc of cerebrospinal fluid. There were no immediate complications. ACT 112: Negative or not required by law. The above report was generated using voice recognition software. It may contain grammatical, syntax o r spelling errors. Electronically signed by: Kristian Perez M.D. 11/10/2021 2:10 PM
[2021-11-10 14:25] LABS: Appearance CSF Clear; CSF Count Tube # 3; CSF Xanthrochromic No xanthochromia; Color CSF Colorless; Red Blood Cell CSF (A) 6 /uL (0-); Red Blood Cell CSF (B) 7 /uL (0-); White Blood Cell CSF (A) 0 /uL (0-5); White Blood Cell CSF (B) 1 /uL (0-5)
[2021-11-10 14:44] LABS: Total Protein CSF 64.7 mg/dl (15-45)
[2021-11-10 15:50] LABS: Cryptococcus neoformans/ga PCR Not Detected (NotDetected); Cytomegalovirus PCR Not Detected (NotDetected); Enterovirus PCR Not Detected (NotDetected); Escherichia coli K1 PCR Not Detected (NotDetected); Haemophilius influenzae PCR Not Detected (NotDetected); Herpes Simplex Virus 1 PCR Not Detected (NotDetected); Herpes Simplex Virus 2 PCR Not Detected (NotDetected); Human Herpes Virus 6 PCR Not Detected (NotDetected); Human Parechovirus PCR Not Detected (NotDetected); Listeria monocytogenes PCR Not Detected (NotDetected); Neisseria meningitidis PCR Not Detected (NotDetected); Streptococcus agalactiae PCR Not Detected (NotDetected); Streptococcus pneumoniae PCR Not Detected (NotDetected); Varicella Zoster Virus PCR Not Detected (NotDetected)
[2021-11-10] MEDS: oxyCODONE HCL IR 5 MG TAB (IMMEDIATE RELEASE) PO PRN (16:27)
[2021-11-10] MEDS ORDERED: PIPERACILL/TAZOBAC CONSULT ACTIVE PRN (16:52)
[2021-11-10] MEDS ORDERED: PIPERACILLIN/TAZOBACTAM 3.375 GM in DEXTROSE 5% 100 ML IV ONE (17:00)
[2021-11-10] MEDS: HEPARIN SOD 5,000 UNIT/0.5 ML VIAL SQ SCH (20:02)
[2021-11-10] MEDS ORDERED: VANCOMYCIN HCL 1,000 MG in SODIUM CHLORIDE 0.9% 250 ML IV SCH (21:00)
[2021-11-11] MEDS: oxyCODONE HCL IR 5 MG TAB (IMMEDIATE RELEASE) PO PRN ×2 (01:43→19:28)
[2021-11-11] MEDS: SODIUM CHLORIDE 0.9% 1000ML 1,000 ML IV SCH ×3 (02:12→22:58)
[2021-11-11] MEDS: MoRPHine SULFATE 2 MG/ML CARP IV PRN ×2 (05:50→16:07)
[2021-11-11] MEDS: LIDOCAINE 5% 1 PATCH TD SCH (08:03)
[2021-11-11] MEDS: ceFAZolin 2000MG 2,000 MG/15 ML SYR IV SCH ×3 (08:03→22:58)
[2021-11-11] MEDS: TAMSULOSIN HCL 0.4 MG CAP PO SCH (08:04)
[2021-11-11 08:25] LABS: Basophils # (auto) 0.01 K/uL (0-0.2); Basophils % (auto) 0.1 %; Eosinophils # (auto) 0.01 K/uL (0-0.5); Eosinophils % (auto) 0.1 %; Hematocrit (blood only) 25.3 % (42-52); Hemoglobin 8.4 g/dL (14.0-18.0); Immature Granulocytes # (auto) 0.03 K/uL (0.00-0.02); Immature Granulocytes % (auto) 0.3 %; Mean Corpuscular Hemoglobin 29.1 pg (25-34); Mean Corpuscular Hgb Conc 33.2 g/dL (32-36); Mean Corpuscular Volume 87.5 fL (80-100); Mean Platelet Volume 8.6 fL (7.4-10.4); Monocytes # (auto) 0.83 K/uL (0.11-0.59); Monocytes % (auto) 7.5 %; Neutrophils # (auto) 9.24 K/uL (1.4-6.5); Platelet Count 209 K/uL (130-400); RDW Coefficient of Variation 13.9 % (11.5-14.5); RDW Standard Deviation 44.6 fL (36.4-46.3); Red Blood Count 2.89 M/uL (4.7-6.1); White Blood Count 11.12 K/uL (4.8-10.8)
[2021-11-11 08:55] LABS: Albumin Globulin Ratio 0.7 (0.9-2); Albumin Level 2.7 gm/dl (3.4-5.0); BUN Creatinine Ratio 30.3 (10-20); Bilirubin,Total 0.3 mg/dl (0.2-1.0); C Reactive Protein 29.92 mg/dl (0-0.5); Calcium 8.2 mg/dl (8.5-10.1); Creatinine Clr Calc Pharmacy 49.6 ml/min; Est GFR (African American) 84.2 ml/min; Est GFR (Non-African American) 72.6 ml/min; Globulin 3.7 gm/dl (2.5-4.0); Potassium 4.2 mmol/L (3.5-5.1); Total Protein 6.4 gm/dl (6.0-8.3)
[2021-11-11] MEDS: HEPARIN SOD 5,000 UNIT/0.5 ML VIAL SQ SCH ×2 (09:52→19:54)
--- NOTE | 2021-11-11 12:44 | Hospitalist Progress Note ---
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: Plan: Patient states he does have low flow with his urine from his prostate continue tamsulosin Patient has had elevation of PSA in the past (4) Anemia: Plan: Likely inflammatory anemia; quite typical in endocarditisawait BECKY (5) DVT prophylaxis: Plan: Heparin will be used for DVT prevention Plan: Patient is a full code Admission and Anticipated Discharge Date Admission Date: November 10, 2021 Subjective Follow-up of presentation with fever, back pain; yesterday was quite lethargic; better today; blood cultures MSSA Physical Exam Physical Exam: Constitutional and general: No acute distress, looks biologic age Head and face: No puffiness, atraumatic Eyes: No scleral icterus, extraocular movements normal Neck: Supple, no JVD Musculoskeletal: No acute joint swelling, no bony abnormalities Skin/dermatologic/integument: No rash, no purpura Hematologic and lymphatic: pallor +, no petechia Gastrointestinal/abdomen: Nondistended, soft, nonacute Neurologic: Cranial nerves intact, nonfocal Psychiatry: Awake, alert, pleasant, communicative Cardiovascular: Heart rhythm regular, no rub, no murmur, no gallop Respiratory: Chest movements equal, no use of accessory muscles, no adventitious sounds Extremities: No edema, no cyanosis Results & Data Results & Data ([facility]) Vital Signs (Past 12 Hours) Vital Signs Temp Pulse Resp BP Pulse Ox 11/11/21 07:43 36.7 C 84 16 157/70 H 94 Laboratory Results Laboratory Results - last 24 hr 11/09/21 11/10/21 11/10/21 20:10 14:04 14:04 WBC RBC Hgb Hct MCV MCH MCHC RDW Std Deviation RDW Coeff of Víctor Plt Count MPV Immature Gran % (Auto) Neut % (Auto) Lymph % (Auto) [place] % (Auto) Eos % (Auto) Baso % (Auto) Neut # (Auto) Lymph # (Auto) [place] # (Auto) Eos # (Auto) Baso # (Auto) Immature Gran # (Auto) Sodium Potassium Chloride Carbon Dioxide Anion Gap BUN Creatinine Est Cr Clr Drug Dosing Est GFR ( Amer) Est GFR (Non-Af Amer) BUN/Creatinine Ratio Glucose Calcium Total Bilirubin AST ALT Alkaline Phosphatase C-Reactive Protein Total Protein Albumin Globulin Albumin/Globulin Ratio Fluid Comment CSF Appearance Clear CSF Color Colorless Xanthrochromic No xanthochromia CSF WBC 0 CSF RBC 6 CSF Cell Count Tube # 3 CSF Chemistry Tube # CSF Glucose CSF Total Protein CSF C.neoform/gat PCR CSF CMV DNA (PCR) CSF Enterovirus (PCR) CSF E. coli K1 (PCR) CSF H. influenzae (PCR) CSF HSV I (PCR) CSF HSV II (PCR) CSF HHV 6 (PCR) CSF L.monocytogenes PCR CSF N. meningitidis PCR CSF Parechovirus (PCR) CSF S. agalactiae (PCR) CSF S. pneumoniae (PCR) CSF VZV DNA (PCR) Cryptococcus Source Pending Cryptococcal Ag (Latex) Pending Bld Cult Staph aureus PCR Positive A Blood Culture MRSA PCR Negative 11/10/21 11/10/21 11/11/21 14:04 14:04 08:12 WBC RBC Hgb Hct MCV MCH MCHC RDW Std Deviation RDW Coeff of Víctor Plt Count MPV Immature Gran % (Auto) Neut % (Auto) Lymph % (Auto) [place] % (Auto) Eos % (Auto) Baso % (Auto) Neut # (Auto) Lymph # (Auto) [place] # (Auto) Eos # (Auto) Baso # (Auto) Immature Gran # (Auto) Sodium 137 Potassium 4.2 Chloride 103 Carbon Dioxide 25 Anion Gap 9 BUN 30 H Creatinine 0.99 Est Cr Clr Drug Dosing 49.6 Est GFR ( Amer) 84.2 Est GFR (Non-Af Amer) 72.6 BUN/Creatinine Ratio 30.3 H Glucose 79 Calcium 8.2 L Total Bilirubin 0.3 AST 17 ALT 22 Alkaline Phosphatase 111 H C-Reactive Protein 29.92 H Total Protein 6.4 Albumin 2.7 L Globulin 3.7 Albumin/Globulin Ratio 0.7 L Fluid Comment CSF Appearance CSF Color Xanthrochromic CSF WBC CSF RBC CSF Cell Count Tube # CSF Chemistry Tube # 1 CSF Glucose 55 CSF Total Protein 64.7 H CSF C.neoform/gat PCR Not Detected CSF CMV DNA (PCR) Not Detected CSF Enterovirus (PCR) Not Detected CSF E. coli K1 (PCR) Not Detected CSF H. influenzae (PCR) Not Detected CSF HSV I (PCR) Not Detected CSF HSV II (PCR) Not Detected CSF HHV 6 (PCR) Not Detected CSF L.monocytogenes PCR Not Detected CSF N. meningitidis PCR Not Detected CSF Parechovirus (PCR) Not Detected CSF S. agalactiae (PCR) Not Detected CSF S. pneumoniae (PCR) Not Detected CSF VZV DNA (PCR) Not Detected Cryptococcus Source Cryptococcal Ag (Latex) Bld Cult Staph aureus PCR Blood Culture MRSA PCR 11/11/21 08:12 WBC 11.12 H RBC 2.89 L Hgb 8.4 L Hct 25.3 L MCV 87.5 MCH 29.1 MCHC 33.2 RDW Std Deviation 44.6 RDW Coeff of Víctor 13.9 Plt Count 209 MPV 8.6 Immature Gran % (Auto) 0.3 Neut % (Auto) 83.0 Lymph % (Auto) 9.0 [place] % (Auto) 7.5 Eos % (Auto) 0.1 Baso % (Auto) 0.1 Neut # (Auto) 9.24 H Lymph # (Auto) 1.00 L [place] # (Auto) 0.83 H Eos # (Auto) 0.01 Baso # (Auto) 0.01 Immature Gran # (Auto) 0.03 H Sodium Potassium Chloride Carbon Dioxide Anion Gap BUN Creatinine Est Cr Clr Drug Dosing Est GFR ( Amer) Est GFR (Non-Af Amer) BUN/Creatinine Ratio Glucose Calcium Total Bilirubin AST ALT Alkaline Phosphatase C-Reactive Protein Total Protein Albumin Globulin Albumin/Globulin Ratio Fluid Comment CSF Appearance CSF Color Xanthrochromic CSF WBC CSF RBC CSF Cell Count Tube # CSF Chemistry Tube # CSF Glucose CSF Total Protein CSF C.neoform/gat PCR CSF CMV DNA (PCR) CSF Enterovirus (PCR) CSF E. coli K1 (PCR) CSF H. influenzae (PCR) CSF HSV I (PCR) CSF HSV II (PCR) CSF HHV 6 (PCR) CSF L.monocytogenes PCR CSF N. meningitidis PCR CSF Parechovirus (PCR) CSF S. agalactiae (PCR) CSF S. pneumoniae (PCR) CSF VZV DNA (PCR) Cryptococcus Source Cryptococcal Ag (Latex) Bld Cult Staph aureus PCR Blood Culture MRSA PCR PG Care Time/CCT Total # of Minutes Spent Total Time Spent with Patient: Total time spent is greater than 50% in coordination of care (as documented) at patient's floor/unit and/or counseling patient: Coding Level of Care Code 60740 Subseq Hosp Care Lvl 2 Diagnoses Intractable back pain M54.9 BPH with obstruction/lower urinary tract symptoms N40.1; N13.8 Anemia D64.9 DVT prophylaxis Z29.9 MSSA bacteremia R78.81; B95.61
[2021-11-11] MEDS ORDERED: CYCLOBENZAPRINE HCL 10 MG TAB PO STA (19:37)
[2021-11-12] MEDS: MoRPHine SULFATE 2 MG/ML CARP IV PRN ×3 (05:47→16:35)
[2021-11-12 06:10] LABS: Eosinophils # (auto) 0.02 K/uL (0-0.5); Eosinophils % (auto) 0.3 %; Hematocrit (blood only) 25.2 % (42-52); Hemoglobin 8.4 g/dL (14.0-18.0); Immature Granulocytes # (auto) 0.04 K/uL (0.00-0.02); Immature Granulocytes % (auto) 0.5 %; Lymphocytes % (auto) 16.5 %; Mean Corpuscular Hemoglobin 28.7 pg (25-34); Mean Corpuscular Hgb Conc 33.3 g/dL (32-36); Mean Platelet Volume 8.9 fL (7.4-10.4); Monocytes # (auto) 0.78 K/uL (0.11-0.59); Monocytes % (auto) 9.9 %; Neutrophils # (auto) 5.76 K/uL (1.4-6.5); Neutrophils % (auto) 72.8 %; Platelet Count 260 K/uL (130-400); RDW Coefficient of Variation 13.8 % (11.5-14.5); RDW Standard Deviation 43.7 fL (36.4-46.3); Red Blood Count 2.93 M/uL (4.7-6.1)
[2021-11-12 07:00] LABS: Albumin Globulin Ratio 0.8 (0.9-2); Albumin Level 2.7 gm/dl (3.4-5.0); BUN Creatinine Ratio 29.4 (10-20); Bilirubin,Total 0.4 mg/dl (0.2-1.0); Calcium 9.1 mg/dl (8.5-10.1); Creatinine Clr Calc Pharmacy 57.7 ml/min; Est GFR (African American) 96.7 ml/min; Est GFR (Non-African American) 83.5 ml/min; Globulin 3.5 gm/dl (2.5-4.0); Potassium 3.7 mmol/L (3.5-5.1); Total Protein 6.2 gm/dl (6.0-8.3)
[2021-11-12] MEDS ORDERED: BENZOCAINE/TETRACAIN/BUTAM 50 APPLN/5 GM CAN EXT ONE (07:10)
[2021-11-12] MEDS ORDERED: PROPOFOL IV EMULSION 10 MG/ML 20 ML VIAL IV ONE (07:16)
[2021-11-12] MEDS ORDERED: KETAMINE 50 MG/5 ML SYRINGE ONE (07:16)
[2021-11-12] MEDS ORDERED: LIDOCAINE 2% 2 ML VIAL/AMP(20MG/ML) INFIL ONE ×2 (07:16→08:14)
--- NOTE | 2021-11-12 07:43 | Anesthesiology Consultation ---
Date of Service November 12, 2021 Assessment & Plan (1) Encounter for pre-operative examination: Chart Review Chart Review: Acceptable Risk for Surgery, Patient NOT seen in Pre Admission Testing and bag inspector initiated Consults Requested none ASA ASA3 Proposed Anesthesia Anesthesia Type: MAC Risk / Benefits Reviewed With: PT / POA / Parent / Guardian, Accepts Plan and Informed Consent Obtained History Surgery Operation Date: 11/12/21 12:00 Proposed Procedures p Transesophageal Echo w/Anesthesia - Santy Alejandro MD Height/Weight Height: 5 ft 4 in Weight: 57 kg Allergies Allergy/AdvReac Type Severity Reaction Status Date / Time adhesive Allergy Severe FOAM TAPE Verified 11/09/21 22:17 - RIPPED SKIN OFF Medications Home Medications Medication Instructions Recorded Confirmed Last Taken ascorbate calcium (vitamin C) 500 500 mg PO DAILY #90 tab 03/15/19 11/09/21 11/09/21 mg tablet aspirin 81 mg tablet,delayed 81 mg PO DAILY #90 tab 03/15/19 11/09/21 11/09/21 release cholecalciferol (vitamin D3) 50 2,000 units PO DAILY #90 tab 03/15/19 11/09/21 11/09/21 mcg (2,000 unit) tablet ferrous gluconate 256 mg (28 mg 256 mg PO DAILY #90 tab 03/15/19 11/09/21 11/09/21 iron) tablet ixivwaag-hcc-cnnqx acid 0.4 1 tab PO DAILY #90 tab 03/15/19 11/09/21 11/09/21 mg-lycopene 300 mcg-lutein 250 mcg tablet (Centrum Silver) vitamin B complex (B Complex 1) 1 tab PO DAILY #90 tab 03/15/19 11/09/21 11/09/21 tadalafil 5 mg tablet 5 mg PO DAILY PRN #90 tab 06/18/21 11/09/21 Unknown celecoxib 200 mg capsule 200 mg PO DAILY #90 cap 08/02/21 11/09/21 11/09/21 prednisone 10 mg tablet 10 mg PO .COMPLEX #12 tab 11/04/21 11/09/21 11/09/21 oxycodone 5 mg tablet 5 mg PO Q6H PRN 11/09/21 11/09/21 Unknown tamsulosin 0.4 mg capsule 0.8 mg PO DAILY 11/09/21 11/09/21 Unknown Active Medications Generic Name Dose Route Start Last Admin Trade Name Freq PRN Reason Stop Dose Admin Acetaminophen 650 mg 11/10/21 05:14 11/10/21 16:33 Acetaminophen 325 Mg Tab PO 12/10/21 05:13 650 mg Q4H PRN Administration pain/fever Heparin Sodium (Porcine) 5,000 units 11/10/21 21:00 11/11/21 19:54 Heparin Sod 5,000 Unit/0.5 Ml Vial SQ 12/10/21 20:59 5,000 units Q12 HARESH Administration Sodium Chloride 1,000 mls @ 50 mls/hr 11/10/21 08:00 11/11/21 22:58 Nss 1000ml IV 12/10/21 07:59 50 mls/hr .Q20H HARESH Administration Cefazolin Sodium 2,000 mg in 15 mls @ 3.75 mls/min 11/11/21 08:00 11/11/21 22:58 Ancef 2000mg IV 11/25/21 07:59 3.75 mls/min Q8H HARESH Administration Lidocaine 1 patch 11/10/21 09:00 11/11/21 08:03 Lidocaine 5% 1 Patch TD 12/10/21 08:59 1 patch QAM HARESH Administration Miscellaneous 1 ea 11/10/21 21:00 11/11/21 19:59 Remove Lidoderm Patch N/A 12/10/21 20:59 1 ea DAILY@2100 HARESH Administration Morphine Sulfate 2 mg 11/10/21 05:14 11/12/21 05:47 Morphine Sulfate 2 Mg/Ml Carp IV 11/24/21 05:13 2 mg Q4 PRN Administration Pain Scale: 2,3,4,5,6 Oxycodone HCl 5 mg 11/10/21 05:14 11/11/21 19:28 Oxycodone Hcl Ir 5 Mg Tab (Immediate Release) PO 11/24/21 05:13 5 mg Q6H PRN Administration Pain Tamsulosin HCl 0.8 mg 11/10/21 09:00 11/11/21 08:04 Tamsulosin Hcl 0.4 Mg Cap PO 12/10/21 08:59 0.8 mg DAILY HARESH Administration NPO Date Last Intake of Fluids: 11/12/21 Time Last Intake of Fluids: 05:00 Date Last Intake of Solids: 11/11/21 Time Last Intake of Solids: 20:00 Past Medical History Medical History (Updated 11/12/21 @ 07:42 by Ritchie Darnell MD) Anemia Arthritis BPH with obstruction/lower urinary tract symptoms Elevated PSA Encounter for pre-operative examination Exercise / Class Metabolic Activity III < 4 Walking/Shop/Light housework Past Family History Family History Sister Cancer Mother Cancer Father Myocardial infarction Denies family history of Ovarian cancer Prostate cancer Breast cancer Colorectal cancer Past Surgical History Surgical History H/O lithotripsy H/O shoulder surgery History of hernia repair History of hip surgery S/P hip replacement Past Anesthesia History No Hx of Anesthesia Complications and No Family Hx of Anesthesia Complications History of PONV No Hx of PONV and No Hx of Motion Sickness Social History Smoking Status: Never smoker Hx Alcohol Use: No Hx Substance Use: No Physical Exam Vital Signs Last Vital Signs Temp 36.7 C 11/12/21 07:22 Pulse 91 H 11/12/21 07:22 Resp 21 11/12/21 07:22 BP 126/74 11/12/21 07:22 Pulse Ox 96 11/12/21 07:22 ENMT Mouth: + dentures; no chipped teeth and no loose teeth Thyromental Distance: > or= 3.5 Finger Breadths Mallampati Class: II Neck normal visual inspection, trachea midline and + limited neck extension Respiratory normal respiratory effort; no respiratory distress Auscultation: lungs clear to auscultation bilaterally; no crackles, no rhonchi and no wheezes Cardiovascular Rate/Rhythm: regular rate and regular rhythm Heart Sounds: no gallop, no murmur and no cardiac rub Neurologic moves all extremities and awake Psychiatric Orientation: alert Testing Laboratory Results 11/12/21 05:12 11/12/21 05:12 PT 11.5 Seconds (9.0-12.0) 11/10/21 10:14 INR 1.1 (0.9-1.1) 11/10/21 10:14 Urine Color Yellow 11/09/21 22:19 Urine Appearance Clear (Clear) 11/09/21 22:19 Urine pH 5.0 (4.5-7.5) 11/09/21 22:19 Ur Specific [place] 1.015 (1.000-1.030) 11/09/21 22:19 Urine Protein 1+ (Negative) H 11/09/21 22:19 Urine Glucose (UA) Negative (Negative) 11/09/21 22:19 Urine Ketones Negative (Negative) 11/09/21 22:19 Urine Nitrite Negative (Negative) 11/09/21 22:19 Ur Leukocyte Esterase Negative (Negative) 11/09/21 22:19 Urine WBC (Auto) 1-5 /hpf (0-5) 11/09/21 22:19 Urine RBC (Auto) 5-10 /hpf (0-4) H 11/09/21 22:19 U Hyaline Cast (Auto) 0 /lpf (0-5) 11/09/21 22:19 U Epithel Cells (Auto) 0-5 /lpf (0-5) 11/09/21 22:19 Urine Bacteria (Auto) Negative (Negative) 11/09/21 22:19 11/10/21 Unknown Urine Culture - Preliminary Urine,Clean Catch No growth - Less than 1,000 colonies/mL, Final report to follow. 11/10/21 14:04 Gram Stain - Final Cerebral Spinal Fluid CSF Culture - Preliminary No growth to date. 11/09/21 21:19 Aerobic Blood Culture - Preliminary Blood Staphylococcus species Anaerobic Blood Culture - Preliminary Staphylococcus species 11/09/21 20:10 Aerobic Blood Culture - Preliminary Blood Staphylococcus species Anaerobic Blood Culture - Preliminary Staphylococcus species Electrocardiogram Date: 11/09/21 Findings: + NSR @ (100) Chest X-Ray Date: 11/09/21 Findings: + NAD Echocardiogram Date: 11/10/21 EF: 55-60% LV Function: normal RWMA: + none Other Findings: + LVH (Mild)
--- NOTE | 2021-11-12 09:33 | Anesthesiology Progress Note ---
Date of Service November 12, 2021 Anesthesia Post Procedure Vital Signs Vital Signs: Temp Pulse Resp BP BP Pulse Ox 11/12/21 09:15 36.8 C 90 16 160/74 H 96 11/12/21 08:48 37 C 92 H 16 152/71 H 96 11/12/21 08:25 85 20 146/72 H 99 11/12/21 08:10 85 20 146/72 H 99 11/12/21 07:22 36.7 C 91 H 21 126/74 96 11/12/21 06:51 36.9 C 92 H 16 158/77 H 95 11/11/21 23:04 36.8 C 86 16 135/71 96 11/11/21 15:25 37 C 98 H 16 166/71 H 95 Pain Intensity Medial Back: Pain Intensity: 8 Transfer of Care Handoff Completed per policy Notes Mental Status: alert / awake / arousable and participated in evaluation Patient Amnestic to Procedure: Yes Nausea / Vomiting: adequately controlled Pain: adequately controlled Airway Patency, RR, SpO2: stable & adequate BP & HR: stable & adequate Hydration State: stable & adequate Anesthetic Complications: no major complications apparent and Pt Satisfied with anesthetic care
--- NOTE | 2021-11-12 11:13 | Hospitalist Progress Note ---
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: Plan: Patient states he does have low flow with his urine from his prostate continue tamsulosin Patient has had elevation of PSA in the past (4) Anemia: Plan: Likely inflammatory anemia; quite typical in endocarditisawait BECKY (5) DVT prophylaxis: Plan: Heparin will be used for DVT prevention Plan: Patient is a full code Admission and Anticipated Discharge Date Admission Date: November 10, 2021 Subjective Follow-up of presentation with fever, back pain; recurrent MSSA bacteremia, unknown source-status post BECKY Physical Exam Physical Exam: Constitutional and general: No acute distress, looks biologic age Head and face: No puffiness, atraumatic Eyes: No scleral icterus, extraocular movements normal Neck: Supple, no JVD Musculoskeletal: No acute joint swelling, no bony abnormalities Skin/dermatologic/integument: No rash, no purpura Hematologic and lymphatic: pallor +, no petechia Gastrointestinal/abdomen: Nondistended, soft, nonacute Neurologic: Cranial nerves intact, nonfocal Psychiatry: Awake, alert, pleasant, communicative Cardiovascular: Heart rhythm regular, no rub, no murmur, no gallop Respiratory: Chest movements equal, no use of accessory muscles, no adventitious sounds Extremities: No edema, no cyanosis Results & Data Results & Data ([facility]) Vital Signs (Past 12 Hours) Vital Signs Temp Pulse Resp BP Pulse Ox 11/12/21 10:44 36.9 C 95 H 14 162/68 H 96 11/12/21 10:13 36.7 C 92 H 14 155/70 H 97 11/12/21 09:46 98 H 16 150/71 H 96 11/12/21 09:15 36.8 C 90 16 160/74 H 96 11/12/21 08:48 37 C 92 H 16 152/71 H 96 11/12/21 08:25 85 20 146/72 H 99 11/12/21 08:10 85 20 146/72 H 99 11/12/21 07:22 36.7 C 91 H 21 126/74 96 11/12/21 06:51 36.9 C 92 H 16 158/77 H 95 Laboratory Results Laboratory Results - last 24 hr 11/12/21 11/12/21 05:12 05:12 WBC 7.90 RBC 2.93 L Hgb 8.4 L Hct 25.2 L MCV 86.0 MCH 28.7 MCHC 33.3 RDW Std Deviation 43.7 RDW Coeff of Víctor 13.8 Plt Count 260 MPV 8.9 Immature Gran % (Auto) 0.5 Neut % (Auto) 72.8 Lymph % (Auto) 16.5 [place] % (Auto) 9.9 Eos % (Auto) 0.3 Baso % (Auto) 0.0 Neut # (Auto) 5.76 Lymph # (Auto) 1.30 [place] # (Auto) 0.78 H Eos # (Auto) 0.02 Baso # (Auto) 0.00 Immature Gran # (Auto) 0.04 H Sodium 134 L Potassium 3.7 Chloride 102 Carbon Dioxide 26 Anion Gap 6 BUN 25 H Creatinine 0.85 Est Cr Clr Drug Dosing 57.7 Est GFR ( Amer) 96.7 Est GFR (Non-Af Amer) 83.5 BUN/Creatinine Ratio 29.4 H Glucose 95 Calcium 9.1 Total Bilirubin 0.4 AST 25 ALT 19 Alkaline Phosphatase 118 H Total Protein 6.2 Albumin 2.7 L Globulin 3.5 Albumin/Globulin Ratio 0.8 L PG Care Time/CCT Total # of Minutes Spent Total Time Spent with Patient: Total time spent is greater than 50% in coordination of care (as documented) at patient's floor/unit and/or counseling patient: Coding Level of Care Code 47902 Subseq Hosp Care Lvl 2 Diagnoses MSSA bacteremia R78.81; B95.61 Intractable back pain M54.9 BPH with obstruction/lower urinary tract symptoms N40.1; N13.8 Anemia D64.9 DVT prophylaxis Z29.9
--- NOTE | 2021-11-12 12:43 | XCELERA ---
[id number]
[2021-11-12] MEDS: ceFAZolin 2000MG 2,000 MG/15 ML SYR IV SCH ×2 (13:10→18:38)
[2021-11-12] MEDS: TAMSULOSIN HCL 0.4 MG CAP PO SCH (13:16)
[2021-11-12] MEDS: HEPARIN SOD 5,000 UNIT/0.5 ML VIAL SQ SCH ×2 (13:21→20:29)
--- NOTE | 2021-11-12 14:20 | Orthopedic Consultation ---
Date of Consultation November 12, 2021 Assessment & Plan (1) Intractable back pain: MRI lumbar spine is available for review. 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 L5-S1 is evidence of anterior listhesis. There is significant fluid within the L5-S1 disc space. This could be consistent with classic degenerative change and instability however in light of his presentation I question whether this is the beginnings of a discitis. It may be worth reimaging his spine and another 10 to 14 days. Otherwise I cannot clearly explain his severe back pain without evidence of neurogenic claudication or radiculopathy. He certainly has evidence of severe neuroforaminal disease but again no complaints of leg pain. History of Present Illness Reason for Consultation: Back pain Attending Physician: Bryson Holliday MD History of Present Illness This is a 72-year-old male who presents with history of moderately severe back pain of several weeks. Denies any specific trauma fall or event. Denies any radicular pain. He states he has chronic tingling in the legs. He states that he lives at home with his . He states he is comfortable sitting in bed. He states that standing walking create worsening back pain. Allergies Allergy/AdvReac Type Severity Reaction Status Date / Time adhesive Allergy Severe FOAM TAPE Verified 11/09/21 22:17 - RIPPED SKIN OFF Home Medications Medication Instructions Recorded Confirmed Type ascorbate calcium (vitamin C) 500 500 mg PO DAILY #90 tab 03/15/19 11/09/21 Rx mg tablet aspirin 81 mg tablet,delayed 81 mg PO DAILY #90 tab 03/15/19 11/09/21 Rx release cholecalciferol (vitamin D3) 50 2,000 units PO DAILY #90 tab 03/15/19 11/09/21 Rx mcg (2,000 unit) tablet ferrous gluconate 256 mg (28 mg 256 mg PO DAILY #90 tab 03/15/19 11/09/21 Rx iron) tablet clmpiawe-wgp-ougig acid 0.4 1 tab PO DAILY #90 tab 03/15/19 11/09/21 Rx mg-lycopene 300 mcg-lutein 250 mcg tablet (Centrum Silver) vitamin B complex (B Complex 1) 1 tab PO DAILY #90 tab 03/15/19 11/09/21 Rx tadalafil 5 mg tablet 5 mg PO DAILY PRN #90 tab 06/18/21 11/09/21 Rx celecoxib 200 mg capsule 200 mg PO DAILY #90 cap 08/02/21 11/09/21 Rx prednisone 10 mg tablet 10 mg PO .COMPLEX #12 tab 11/04/21 11/09/21 Rx oxycodone 5 mg tablet 5 mg PO Q6H PRN 11/09/21 11/09/21 History tamsulosin 0.4 mg capsule 0.8 mg PO DAILY 11/09/21 11/09/21 History Patient History Medical History (Updated 11/12/21 @ 07:42 by Ritchie Darnell MD) Anemia Arthritis BPH with obstruction/lower urinary tract symptoms Elevated PSA Encounter for pre-operative examination Surgical History H/O lithotripsy H/O shoulder surgery History of hernia repair History of hip surgery S/P hip replacement Family History Sister Cancer Mother Cancer Father Myocardial infarction Denies family history of Ovarian cancer Prostate cancer Breast cancer Colorectal cancer Social History Smoking Status: Never smoker Second Hand Exposure: No; Hx Alcohol Use: No Hx Substance Use: No Communication Ability: Effective Hat Forming Machine Feeder Required: No Beliefs That Will Affect Care: None marital status: Current Living Situation: Spouse current occupational status: employed current occupation: [employer] How many Children do You have: 3 Other Information That Helps Us Care for You: No Feels Safe at Home: Yes Safety Concerns: Feels Safe At This Time Childhood Exposure to Second-Hand Smoke: No Dental Care, Regularly: Yes Physical Activity Frequency: Daily Seatbelt Use: always Sunscreen Use: No Assistive Devices: Crutches and Walker Physical Exam Physical Exam: On exam he is in bed. Appears to be at least modest distress. He is cachectic. He has reasonable plantar flexion dorsiflexion bilaterally. His deficits with hip flexion and quadriceps to testing. Tenderness palpation left knee. He has sensation intact lower extremities. DTR reflexes diminished.. Results & Data ([facility]) Vital Signs (Past 12 Hours) Vital Signs Temp Pulse Resp BP Pulse Ox 11/12/21 12:53 36.8 C 99 H 16 149/71 H 96 11/12/21 12:01 37.1 C 101 H 16 160/70 H 95 11/12/21 10:44 36.9 C 95 H 14 162/68 H 96 11/12/21 10:13 36.7 C 92 H 14 155/70 H 97 11/12/21 09:46 98 H 16 150/71 H 96 11/12/21 09:15 36.8 C 90 16 160/74 H 96 11/12/21 08:48 37 C 92 H 16 152/71 H 96 11/12/21 08:25 85 20 146/72 H 99 11/12/21 08:10 85 20 146/72 H 99 11/12/21 07:22 36.7 C 91 H 21 126/74 96 11/12/21 06:51 36.9 C 92 H 16 158/77 H 95
[2021-11-12] MEDS: SODIUM CHLORIDE 0.9% 1000ML 1,000 ML IV SCH (14:36)
[2021-11-12] MEDS ORDERED: GADOBUTROL 65ML VIAL IV ONE (18:07)
[2021-11-12] MEDS: oxyCODONE HCL IR 5 MG TAB (IMMEDIATE RELEASE) PO PRN (18:36)
[2021-11-12] MEDS: LIDOCAINE 5% 1 PATCH TD SCH (18:44)
--- NOTE | 2021-11-12 19:18 | Magnetic Resonance Report ---
MR cervical spine wo/w con, MR thoracic spine wo/w con HISTORY: 80 years-old Male Current MSSA bacteremia, back pain, per ID acute neck and back pain with bacteremia COMPARISON: MRI thoracic spine of same day, MRI lumbar spine 11/09/2021 TECHNIQUE: Multiplanar multisequence MRI of the cervical and thoracic spine was obtained both with an d without the use of 5.6 cc Gadavist FINDINGS: CERVICAL: Motion degraded exam. Regulatory Associate localizer images demonstrate no gross extraspinal abnormality. Signal wit hin the imaged brainstem and cervical spinal cord is within normal limits. No acute fracture, subluxa tion or endplate erosion. There are degenerative only fusion of the C3-C4 and C5-C7 levels. 3 mm ante rolisthesis C7 on T1 and T2 millimeters anterolisthesis T1 on T2 is likely on a degenerative basis. M ultilevel spondylitic spurring with intervertebral disc space narrowing and facet arthrosis. No abnor mal enhancement. C2-C3: Mild intervertebral disc space narrowing. Moderate spondylitic spurring with posterior disc os teophyte complex. The central canal is patent. There is suggestion of mild bilateral foraminal stenos is. C3-C4: Spondylitic spurring flattens the ventral thecal sac. Moderate facet arthrosis. No significant central canal or neural foraminal narrowing. C4-C5: Partial bony fusion with posterior bridging osteophyte. Moderate facet arthrosis. No significa nt central canal stenosis. Suggestion of mild bilateral foraminal narrowing. C5-C6: Posterior bridging osteophyte. Moderate facet arthrosis. No significant central canal or neura l foraminal narrowing. C6-C7: Posterior bridging osteophyte. Moderate facet arthrosis. No significant central canal or neura l foraminal narrowing. C7-T1: Posterior annular disc bulge with disc uncovering. Spondylitic spurring with moderate facet ar throsis. The central canal and right neural foramen are patent. Mild left foraminal narrowing. THORACIC: Susceptibility artifact from hardware within the right proximal humerus and left hip. Multilevel dege nerative changes of the lumbar spine are noted. Study is motion degraded. No abnormal enhancement dejuan ntified. Small layering pleural effusions. Signal within the thoracic spinal cord is normal. There is no acute fracture, subluxation or endplate erosion. No epidural fluid collections. Mild to moderate multilevel spondylitic spurring with intervertebral disc space narrowing. Moderate T9-T10 disc space narrowing sized anterior endplate bridging osteophyte. There is no high-grade central canal or neural foraminal narrowing identified. Moderate multilevel facet arthrosis. There is a small left paracentral disc osteophyte complex at T8-T9. No significant associated central canal or neural foraminal narrowing. At T10-T11 there is a small central disc osteophyte complex. No significant central canal or neural f oraminal narrowing. IMPRESSION: 1. Motion degraded exam. 2. No acute fracture, subluxation or endplate erosion to suggest discitis/osteomyelitis. 3. Small layering pleural effusions. 4. 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 5. No abnormal enhancement. ACT 112: Negative or not required by law. The above report was generated using voice recognition software. It may contain grammatical, syntax o r spelling errors. Electronically signed by: Kristian Perez M.D. 11/12/2021 7:17 PM
[2021-11-13] MEDS: MoRPHine SULFATE 2 MG/ML CARP IV PRN ×5 (00:21→21:11)
[2021-11-13] MEDS: ceFAZolin 2000MG 2,000 MG/15 ML SYR IV SCH ×3 (00:21→15:45)
[2021-11-13 06:09] LABS: Basophils # (auto) 0.01 K/uL (0-0.2); Basophils % (auto) 0.1 %; Hematocrit (blood only) 26.4 % (42-52); Hemoglobin 8.7 g/dL (14.0-18.0); Immature Granulocytes # (auto) 0.06 K/uL (0.00-0.02); Immature Granulocytes % (auto) 0.5 %; Lymphocytes % (auto) 11.3 %; Mean Corpuscular Hemoglobin 28.2 pg (25-34); Mean Corpuscular Volume 85.7 fL (80-100); Monocytes # (auto) 1.25 K/uL (0.11-0.59); Monocytes % (auto) 10.1 %; Neutrophils # (auto) 9.66 K/uL (1.4-6.5); Platelet Count 262 K/uL (130-400); RDW Coefficient of Variation 13.5 % (11.5-14.5); RDW Standard Deviation 42.4 fL (36.4-46.3); Red Blood Count 3.08 M/uL (4.7-6.1); White Blood Count 12.38 K/uL (4.8-10.8)
[2021-11-13 06:29] LABS: Albumin Globulin Ratio 0.8 (0.9-2); Albumin Level 2.7 gm/dl (3.4-5.0); BUN Creatinine Ratio 24.4 (10-20); Bilirubin,Total 0.5 mg/dl (0.2-1.0); Calcium 9.1 mg/dl (8.5-10.1); Creatinine Clr Calc Pharmacy 57.1 ml/min; Est GFR (African American) 96.3 ml/min; Est GFR (Non-African American) 83.1 ml/min; Globulin 3.4 gm/dl (2.5-4.0); Potassium 3.6 mmol/L (3.5-5.1); Total Protein 6.1 gm/dl (6.0-8.3)
[2021-11-13 06:41] LABS: C Reactive Protein 32.47 mg/dl (0-0.5)
[2021-11-13] MEDS: TAMSULOSIN HCL 0.4 MG CAP PO SCH (08:49)
[2021-11-13] MEDS: HEPARIN SOD 5,000 UNIT/0.5 ML VIAL SQ SCH ×2 (08:49→20:58)
[2021-11-13] MEDS: SODIUM CHLORIDE 0.9% 1000ML 1,000 ML IV SCH (11:04)
[2021-11-13] MEDS: LIDOCAINE 5% 1 PATCH TD SCH (12:11)
--- NOTE | 2021-11-13 12:24 | Hospitalist Progress Note ---
Date of Service November 13, 2021 Assessment & Plan (1) MSSA bacteremia: Plan: Recurrent MSSA bacteremia; WBC, CRP higher; fluid L5-S1 per ortho, highly suspicious of source long d/w Dr. 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: Plan: Patient states he does have low flow with his urine from his prostate continue tamsulosin Patient has had elevation of PSA in the past (4) Anemia: Plan: Likely inflammatory anemia (5) Hip pain: Plan: Given prosthesis worrisome for another source of the sourceMRI; bone scan ordered but not possible till Monday (6) DVT prophylaxis: Plan: Heparin will be used for DVT prevention Plan: Patient is a full code Admission and Anticipated Discharge Date Admission Date: November 10, 2021 Subjective Follow-up of presentation with fever, back pain; recurrent MSSA bacteremia; complains of right hip pain Physical Exam Physical Exam: Constitutional and general: No acute distress but looks unwell, looks biologic age Head and face: No puffiness, atraumatic Eyes: No scleral icterus, extraocular movements normal Neck: Supple, no JVD Skin/dermatologic/integument: No rash, no purpura Hematologic and lymphatic: pallor +, no petechia Gastrointestinal/abdomen: Nondistended, soft, nonacute Neurologic: Cranial nerves intact, nonfocal Psychiatry: Awake, alert, pleasant, communicative Cardiovascular: Heart rhythm regular, no rub, no murmur, no gallop Respiratory: Chest movements equal, no use of accessory muscles, no adventitious sounds Extremities: No edema, no cyanosis Right hip pain on passive movement Results & Data Results & Data ([facility]) Vital Signs (Past 12 Hours) Vital Signs Temp Pulse Pulse Resp BP Pulse Ox 11/13/21 07:30 37.5 C 96 H 20 144/70 H 95 11/13/21 03:06 37 C 95 H 14 142/69 H 94 Laboratory Results Laboratory Results - last 24 hr 11/13/21 11/13/21 05:36 05:36 WBC 12.38 H RBC 3.08 L Hgb 8.7 L Hct 26.4 L MCV 85.7 MCH 28.2 MCHC 33.0 RDW Std Deviation 42.4 RDW Coeff of Víctor 13.5 Plt Count 262 MPV 9.0 Immature Gran % (Auto) 0.5 Neut % (Auto) 78.0 Lymph % (Auto) 11.3 Vilas % (Auto) 10.1 Eos % (Auto) 0.0 Baso % (Auto) 0.1 Neut # (Auto) 9.66 H Lymph # (Auto) 1.40 Vilas # (Auto) 1.25 H Eos # (Auto) 0.00 Baso # (Auto) 0.01 Immature Gran # (Auto) 0.06 H Sodium 134 L Potassium 3.6 Chloride 100 Carbon Dioxide 26 Anion Gap 8 BUN 21 Creatinine 0.86 Est Cr Clr Drug Dosing 57.1 Est GFR ( Amer) 96.3 Est GFR (Non-Af Amer) 83.1 BUN/Creatinine Ratio 24.4 H Glucose 90 Calcium 9.1 Total Bilirubin 0.5 AST 29 ALT 12 Alkaline Phosphatase 105 H C-Reactive Protein 32.47 H Total Protein 6.1 Albumin 2.7 L Globulin 3.4 Albumin/Globulin Ratio 0.8 L PG Care Time/CCT Total # of Minutes Spent Total Time Spent with Patient: Total time spent is greater than 50% in coordination of care (as documented) at patient's floor/unit and/or counseling patient: Coding Level of Care Code 86172 Subseq Hosp Care Lvl 2 Diagnoses MSSA bacteremia R78.81; B95.61 Intractable back pain M54.9 BPH with obstruction/lower urinary tract symptoms N40.1; N13.8 Anemia D64.9 DVT prophylaxis Z29.9 Hip pain M25.559
[2021-11-13] MEDS ORDERED: GADOBUTROL 7.5ML VIAL IV ONE (14:11)
--- NOTE | 2021-11-13 15:28 | Magnetic Resonance Report ---
MR pelvis wo/w con HISTORY: MSSA bacteremia, hip pain TECHNIQUE: Multiplanar multisequence MRI of the pelvis was performed both before and after the intrav enous administration of 5.5 cc of Gadavist contrast. COMPARISON STUDY: Abdomen and pelvis CT 322. FINDINGS: Motion degraded examination. Bilateral total hip arthroplasties are noted. This results in metallic artifact of the bilateral hips with near nondiagnostic evaluation. No definite hip effusions identified. Increased T2 signal within the L5-S1 disc space with mild paravertebral edema and parave rtebral enhancement. The endplates demonstrate mild T1 hypointense signal. Therefore, this is concern ing for a discitis/osteomyelitis. There is also a small amount of fluid within the right sacroiliac j oint with abnormal marrow signal within the adjacent sacrum and iliac bone. There is mild enhancement also at the right sacroiliac joint. Therefore, this is concerning for a septic arthritis. Posterior to the right sacroiliac joint there is edema and enhancement within the gluteal soft tissues. There i s also symmetric edema within the iliacus muscles and groin muscles. Small loculated fluid collection s adjacent to the bilateral greater trochanters without significant enhancement. This favors a chroni c bilateral trochanteric bursitis. IMPRESSION: 1. Small amount of fluid within the right sacroiliac joint with abnormal signal intensity enhancement within the adjacent osseous structures. This likely represents a right-sided sacroiliac joint septic arthritis. 2. There is also edema and enhancement within the soft tissues posterior to the right sacroiliac join t which extends into the gluteal musculature. This may represent an associated infectious myositis. 3. Increased T2 signal within the L5-S1 disc space with mild paravertebral edema and paravertebral en hancement. The endplates demonstrate mild T1 hypointense signal. Therefore, this likely represents a discitis/osteomyelitis at this level. 4. Nonspecific symmetric edema in the iliacus and groin muscles. This could be due to the patient's d iffuse edematous state or a nonspecific myositis. 5. Bilateral total hip arthroplasties. No joint effusions identified. ACT 112: Negative or not required by law. Electronically signed by: Tyrone Higgins M.D. 11/13/2021 3:26 PM
[2021-11-13] MEDS ORDERED: ACETAMINOPHEN 325 MG TAB PO PRN (15:47)
[2021-11-13] MEDS ORDERED: ACETAMINOPHEN 650 MG SUPP PR STA (15:48)
--- NOTE | 2021-11-13 17:18 | Discharge Summary ---
Date of Service November 13, 2021 Admission HPI Per Admitting Provider 80-year-old male presents with the company of his daughter with worsening back pain to the degree where he is having difficulty ambulating, low-grade temperature decreased appetite and weight loss. Patient was well until May 2021 where he was admitted to [facility] with fever and sepsis with at this still insensitive staph aureus originating from urinary tract infection with right-sided ureteral obstruction requiring a stent to be placed. At that time he was treated with both IV and oral antibiotics for greater than 14-day course. During his hospital stay he had a transthoracic echocardiogram which was negative for endocarditis and did have a PICC line placed Patient represented to [facility] August 03, 2021 with worsening back pain with his history blood cultures were obtained and he was later called back to report to the hospital with recurrent culture positive for MSSA he was readmitted to [facility] August 07, 2021 he was discharged August 13 with a diagnosis of MSSA bacteremia. Gallstones without cholecystitis. BPH, during that hospital stay he had an infectious disease consultation also saw hematology oncology for his history of anemia, infectious disease recommended a 6-week course of Ancef last dose September 17, 2021. Both admissions he had images of his back as he did complain of back pain and there is no mention of osteomyelitis discitis transverse myelitis etc. Was felt that likely the source was urinary on both occasions. And both occasions they felt that endocarditis was ruled out. Patient was again presents now to [facility] with similar complaints of back pain inability to ambulate and anorexia with weight loss. Patient states that he is urine is dark yellow there is no dysuria he has decreased stool output but no complaints of particular constipation he has no tenderness or discomfort to any of his artificial joints which includes both hips and right shoulder. In the ER a temperature of 100.4 white count of 14,000 and elevation of inflammatory markers. Blood cultures were obtained and vancomycin and Zosyn was administered by emergency department physician. 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, right sacroiliac septic arthritis Discharge Exam Constitutional and general: No acute distress but looks unwell, looks biologic age Head and face: No puffiness, atraumatic Eyes: No scleral icterus, extraocular movements normal Neck: Supple, no JVD Skin/dermatologic/integument: No rash, no purpura Hematologic and lymphatic: pallor +, no petechia Gastrointestinal/abdomen: Nondistended, soft, nonacute Neurologic: Cranial nerves intact, nonfocal Psychiatry: Awake, alert, pleasant, communicative Cardiovascular: Heart rhythm regular, no rub, no murmur, no gallop Respiratory: Chest movements equal, no use of accessory muscles, no adventitious sounds Extremities: No edema, no cyanosis Right hip pain on passive movement Vital Signs Temp Pulse Pulse Resp BP Pulse Ox 11/13/21 15:25 37.7 C H 89 20 133/60 93 11/13/21 12:42 37.6 C H 74 22 153/87 H 95 11/13/21 07:30 37.5 C 96 H 20 144/70 H 95 11/13/21 03:06 37 C 95 H 14 142/69 H 94 11/12/21 23:35 37.5 C 95 H 16 122/61 94 11/12/21 19:54 36.6 C 98 H 14 127/62 95 Intake and Output 11/13/21 11/13/21 11/13/21 06:59 14:59 22:59 Intake Total 350 / 9804.537 3218 / 1360 360 / 1360 Output Total 250 / 1200 835 / 835 Balance 100 / -68.333 1000 / 525 -475 / 525 Intake: IV 1000 / 1000 Sodium Chloride 0.9% 1000ML 1, 1000 / 1000 000 ml @ 50 mls/hr IV .Q20H [facility] Rx#:[id number] Oral 350 / 350 360 / 360 Output: Urine Amount (Catheter) 250 / 1200 835 / 835 External 250 / 1200 835 / 835 Other: # Unmeasured Voids 1 Weight 57 kg Patient Weight 11/14/21 07:59 Weight 57 kg Discharge Data Allergies Allergy/AdvReac Type Severity Reaction Status Date / Time adhesive Allergy Severe FOAM TAPE Verified 11/09/21 22:17 - RIPPED SKIN OFF Consultations 11/10/21 17:35 Consult Infectious Diseases Routine 11/10/21 17:37 Consult Anesthesiology Routine 11/12/21 11:06 Consult Orthopedic Surgery Routine 11/13/21 16:11 Burn CD for patient Routine Procedures Performed Operation Date: 11/12/21 12:00 Actual Procedures p Echo Transesophageal - Santy Alejandro MD s Echo Color Flow - Santy Alejandro MD s Echo Doppler Complete - Santy Alejandro MD Ordered Studies 11/09/21 20:51 CT abd pelvis wo con Urgent 11/10/21 07:47 CT head/brain wo/w con Stat 11/10/21 10:00 FL lumbar puncture diagnostic Stat 11/10/21 22:46 MR lumbar spine wo/w con Urgent 11/12/21 11:05 MR cervical spine wo/w con Urgent MR thoracic spine wo/w con Urgent 11/13/21 12:14 MR pelvis wo/w con Stat Hospital Course (1) MSSA bacteremia: Recurrent MSSA bacteremia; WBC, CRP higher; fluid L5-S1 per ortho, BECKY negative; surveillance cultures from yesterday negative so far but likely to show up positive soonpending as of now Today right hip pain; MRI pelvis as follows: 1. Small amount of fluid within the right sacroiliac joint with abnormal signal intensity enhancement within the adjacent osseous structures. This likely represents a right-sided sacroiliac joint septic arthritis. 2. There is also edema and enhancement within the soft tissues posterior to the right sacroiliac joint which extends into the gluteal musculature. This may represent an associated infectious myositis. 3. Increased T2 signal within the L5-S1 disc space with mild paravertebral edema and paravertebral enhancement. The endplates demonstrate mild T1 hypointense signal. Therefore, this likely represents a discitis/osteomyelitis at this level. 4. Nonspecific symmetric edema in the iliacus and groin muscles. This could be due to the patient's diffuse edematous state or a nonspecific myositius of source long d/w Dr. Olson more than once; best to be transferred to [facility] by Dr. Octavio Crockett; kept n.p.o. (was accepted earlier after MRI read by Dr. 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: Patient states he does have low flow with his urine from his prostate continue tamsulosin Patient has had elevation of PSA in the past (4) Anemia: Likely inflammatory anemia (5) Hip pain: See #1 Patient is a full code Total Time Total Time Spent Total Time Spent (In Minutes): 110 Discharge Plan Discharge Items Patient Disposition: Transfer Acute Care Hospital Reason For Visit: FEVER, Back Pain, ELEVATED CRP Discharge Diagnosis: MSSA bacteremia, 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, suspected right sacroiliac septic arthritis Activity: As commented below Activity Comment: per accepting team Non-emergency contact: Primary Care Provider Call non-emergency contact if: your symptoms worsen Follow-up/Referrals: Cr Adams DO [Primary Care Provider] - Diet: Nothing by Mouth Addtl Attending Provider Instructions: none-Per discharging acute care facility Pending Studies at Discharge: Yes Studies:: Blood cultures Stand-Alone Forms: My [facility] Skilled Items Patient informed of condition?: Yes DNR: No Discharge Level of Care: Other Communicable Disease: No Discharge Prognosis: Other Lines: Peripheral IV Urinary Catheter: No Medications and DC Order Prescriptions: New acetaminophen 325 mg Tablet 650 mg PO Q4H PRN (Reason: fever or pain) 7 Days RF: 0 morphine 2 mg/mL Syringe 2 mg IV Q4 PRN (Reason: pain) 7 Days RF: 0 Continued celecoxib 200 mg capsule 200 mg PO DAILY Qty: 90 RF: 0 cholecalciferol (vitamin D3) 2,000 unit tablet 2,000 units PO DAILY Qty: 90 RF: 3 ferrous gluconate 256 mg (28 mg iron) tablet 256 mg PO DAILY Qty: 90 RF: 3 Centrum Silver 0.4-300-250 mg-mcg-mcg tablet 1 tab PO DAILY Qty: 90 RF: 3 vitamin B complex [B Complex 1] tablet 1 tab PO DAILY Qty: 90 RF: 3 tadalafil 5 mg tablet 5 mg PO DAILY PRN (Reason: sexual activity) Qty: 90 RF: 0 tamsulosin 0.4 mg capsule 0.8 mg PO DAILY RF: 0 oxycodone 5 mg tablet 5 mg PO Q6H PRN (Reason: Pain) RF: 0 Discontinued prednisone 10 mg tablet 10 mg PO .COMPLEX Qty: 12 RF: 0 ascorbate calcium (vitamin C) 500 mg tablet 500 mg PO DAILY Qty: 90 RF: 3 aspirin 81 mg tablet,delayed release (DR/EC) 81 mg PO DAILY Qty: 90 RF: 3 Discharge Orders: Discharge Order (Routine); Ordered 11/13/21 Ordered By: Bryson Holliday Admission Data Admit Date/Time: 11/10/21 03:22 Attending Provider: Bryson Holliday Admit Provider: Tyrell Lozano Primary Care Provider: Cr Adams Other Providers: Ajit Montejo ; Rickey Valencia ; Pradeep Cuevas I. ; Chris Maynard II ; Rozina Gonzalez ; Ash Lovelace ; Evaristo Wiseman ; John Paul George ; Shelton Olson Coding Level of Care Code D/C DAY MANAGEMENT >30 MINS Diagnoses MSSA bacteremia R78.81; B95.61 Intractable back pain M54.9 BPH with obstruction/lower urinary tract symptoms N40.1; N13.8 Anemia D64.9 Hip pain M25.559
[2021-11-14] MEDS: ceFAZolin 2000MG 2,000 MG/15 ML SYR IV SCH (00:14)
[2021-11-14 01:42] LABS: Cryptococcal Antigen Not Detected (Not Detected); Source CSF
== END 2021-11-14 01:05 | disposition short-term general hospital (02) | DRG 540 ==
LOC: ED 19:24 → 3E 11-10 03:22

== ENCOUNTER 2023-10-25 10:41 | Observation (INO) ==
--- NOTE | 2023-09-21 15:32 | PAT Medication Instructions ---
Medication Instructions Date of Service September 21, 2023 Home Medications Medication Instructions Recorded right afo brace #1 ea 12/22/21 grabber #1 ea 10/03/22 cephalexin 500 mg capsule 500 mg PO TID #90 caps 07/16/23 mupirocin 2 % topical ointment 1 applic topical BID PRN cephalexin 500 mg capsule 500 mg PO TID acetaminophen 500 mg tablet 500 mg PO TID PRN cholecalciferol (vitamin D3) 50 mcg (2,000 unit) tablet 2,000 units PO QAM vlykwrbo-nwl-aoohf acid 0.4 mg-lycopene 300 mcg-lutein 250 mcg tablet (Centrum Silver) 1 tab PO QAM prednisone 5 mg tablet 5 mg PO Q OTHER DAY PRN tamsulosin 0.4 mg capsule 0.8 mg PO QAM vitamin B complex 1 tab PO QAM Continue as directed prednisone 5 mg tablet 5 mg PO Q OTHER DAY PRN(if needed) STOP taking 24 hours before surgery mupirocin 2 % topical ointment 1 applic topical BID PRN DO NOT take the morning of surgery cholecalciferol (vitamin D3) 50 mcg (2,000 unit) tablet 2,000 units PO QAM xeosynsv-kze-kmakr acid 0.4 mg-lycopene 300 mcg-lutein 250 mcg tablet (Centrum Silver) 1 tab PO QAM vitamin B complex 1 tab PO QAM Take morning of surgery With a small sip of water, OTHERWISE NOTHING TO EAT OR DRINK AFTER MIDNIGHT: cephalexin 500 mg capsule 500 mg PO TID acetaminophen 500 mg tablet 500 mg PO TID PRN(if needed) tamsulosin 0.4 mg capsule 0.8 mg PO QAM Take evening before surgery cephalexin 500 mg capsule 500 mg PO TID acetaminophen 500 mg tablet 500 mg PO TID PRN(if needed) Other Notes If you have any questions please call us at [phone] or [phone] or [phone] or [phone]
--- NOTE | 2023-09-28 12:50 | Anesthesiology Consultation ---
Date of Service September 28, 2023 Assessment & Plan (1) Encounter for pre-operative examination: - Check BSG AM DOS - Infectious disease screening: Per assessment on 09/28/23: No known infectious disease contacts or current infectious disease symptoms. No noted recent Covid positive test result. - Outpatient joint assessment: Pt currently scheduled for inpatient pathway. If surgeon requests review for outpatient joint pathway, patient is not recommended candidate for outpatient joint program from anesthesia standpoint based on available information. Chart Review Chart Review: Acceptable Risk for Surgery and Patient seen in Pre Admission Testing Teaching & Discussion Pre-Anesthesia Teaching/Discussion Notes: Instructed NPO after midnight before surgery,except medications with 15 cc of water. Medication instructions provided according to the PAT guidelines. History Surgery Operation Date: 10/25/23 12:55 Proposed Procedures p Left Shoulder Reverse Total Arthroplasty(Left) - Sanjay Martinez MD Height/Weight Height: 5 ft 5 in Weight: 59.6 kg Allergies Allergy/AdvReac Type Severity Reaction Status Date / Time adhesive Allergy Severe Foam tape- Verified 09/28/23 14:58 ripped skin off Medications Home Medications Medication Instructions Recorded Confirmed Last Taken right afo brace #1 ea 12/22/21 04/28/23 Unknown grabber #1 ea 10/03/22 04/28/23 Unknown mupirocin 2 % topical ointment 1 applic topical BID PRN Skin 01/18/23 09/21/23 Unknown Irritation cephalexin 500 mg capsule 500 mg PO TID #90 caps 07/16/23 09/21/23 Unknown acetaminophen 500 mg tablet 500 mg PO TID PRN Pain 08/01/23 09/21/23 Unknown cholecalciferol (vitamin D3) 50 2,000 units PO QAM 09/21/23 09/21/23 Unknown mcg (2,000 unit) tablet [id number]-[id number] acid 0.4 1 tab PO QAM 09/21/23 09/21/23 Unknown mg-lycopene 300 mcg-lutein 250 mcg tablet (Centrum Silver) prednisone 5 mg tablet 5 mg PO Q OTHER DAY PRN Pain 09/21/23 09/21/23 Unknown tamsulosin 0.4 mg capsule 0.8 mg PO QAM 09/21/23 09/21/23 Unknown vitamin B complex 1 tab PO QAM 09/21/23 09/21/23 Unknown Past Medical History Medical History Anemia Follows with hematology (Dr. Jaron Crawford/Jackson) Hgb ranges from 9-11 BPH with obstruction/lower urinary tract symptoms Elevated blood sugar HgbA1C 07/2023: 6.2% Hearing loss + hearing aids Hx of renal calculi Hx: UTI (urinary tract infection) 2021 > became septic, has been on chronic abx treatment since Osteoarthritis Prednisone PRN for "joint pain" Rare use, no recent use Spinal stenosis Exercise / Class Metabolic Activity II 4-5 Yardwork/Stairs/Walk up hill (one FS (no CP, no SOB)) Past Family History Family History Sister Cancer Mother Cancer Father Myocardial infarction Denies family history of Ovarian cancer Prostate cancer Breast cancer Colorectal cancer Past Surgical History Surgical History H/O lithotripsy History of hernia repair History of reverse total replacement of right shoulder joint History of total left hip arthroplasty History of total right hip arthroplasty History of transesophageal echocardiography (BECKY) 11/2021 [facility] [place] Hx of colonoscopy Past Anesthesia History No Hx of Anesthesia Complications and No Family Hx of Anesthesia Complications History of PONV No Hx of PONV and No Hx of Motion Sickness Social History Smoking Status: Former smoker Do You Dip or Chew Tobacco: No Smoking End Date: Quit 40 years ago Hx Alcohol Use: No (None for 30 years ago) Hx Substance Use: No substance use type: does not use Review of Systems Patient denies chest pain, shortness of breath, dyspnea on exertion, fever, chills, cough, wheezing, palpitations. Physical Exam Vital Signs VITALS BP 105/63 P 82 TEMP 98.0 SP02 98%RA RESP 18 PHYSICAL Full cervical extension range of motion. Full TMJ range of motion. TMD 3 finger breaths Mallampati Score 3 Dentition: upper/lower partial Lungs: clear throughout to auscultation Cardiac: regular rate and rhythm, no murmurs noted Spine: normal Carotid arteries: negative bruit Extremities: no LE edema Lab Results Anesthesia Preop Results Results Anesthesia Widget: WBC 5.56 K/ul (4.8-10.8) 09/28/23 Hgb 11.2 g/dl (14.0-18.0) L 09/28/23 Hct 35.9 % (42.0-52.0) L 09/28/23 Plt 284 K/uL (130-400) 09/28/23 Na 137 mmol/L (136-145) 09/28/23 K 4.4 mmol/L (3.5-5.1) 09/28/23 Cl 100 mmol/L (98-107) 09/28/23 CO2 30 mmol/L (21-32) 09/28/23 BUN 35 mg/dl (6-23) H 09/28/23 Creat 1.08 mg/dl (0.6-1.4) 09/28/23 Glucose Level 151 mg/dl (70-99(Fasting)) H 09/28/23 PT 10.9 Seconds (9.0-12.0) 09/28/23 PTT 30 Seconds (21-31) 09/28/23 INR 1.0 (0.9-1.1) 09/28/23 HA1c 6.2 % (4.5-5.6) H 08/01/23 Urine Color Yellow 09/28/23 Urine Appearance Clear (Clear) 09/28/23 Urine pH 5.0 (4.5-7.5) 09/28/23 Urine Specific [place] 1.022 (1.000-1.030) 09/28/23 Urine Protein Negative (Negative) 09/28/23 Urine Glucose (UA) Negative (Negative) 09/28/23 Urine Ketones Negative (Negative) 09/28/23 Urine Blood Negative (Negative) 09/28/23 Urine Nitrite Negative (Negative) 09/28/23 Urine Bilirubin Negative (Negative) 09/28/23 Urine Urobilinogen Negative (Negative) 09/28/23 Urine Leukocyte Esterase 1+ (Negative) H 09/28/23 Urine WBC (Auto) 1-5 /hpf (0-5) 09/28/23 Urine RBC (Auto) 0-4 /hpf (0-4) 09/28/23 Urine Hyaline Casts (Auto) 1-5 /lpf (0-5) 09/28/23 Urine Epithelial Cells (Auto) 0-5 /lpf (0-5) 09/28/23 Urine Bacteria (Auto) Negative (Negative) 09/28/23 Blood Type O Positive 09/28/23 Antibody Screen NEGATIVE 09/28/23 Testing Laboratory Results *Preop labs forwarded to cancer program coordinator for continuity of care* Electrocardiogram Date: 09/28/23 SR with first degree AVB at 82bpm. Chest X-Ray Date: 09/28/23 FINDINGS: Right shoulder arthroplasty is incidentally noted. Lung volumes are normal. Lungs are clear. There is no pneumothorax or pleural effusion. Cardiac size is normal. Mediastinal contours are normal. There is no evidence for pulmonary edema. IMPRESSION: No acute cardiopulmonary findings. Echocardiogram Date: 11/10/21 EF 55 to 60%. LV wall motion is normal. Mild concentric LVH. Grade 1 diastolic dysfunction. No significant valvular disease.
--- NOTE | 2023-10-24 15:55 | History & Physical Report ---
Date of Service October 24, 2023 Assessment & Plan (1) Rotator cuff arthropathy of left shoulder: Plan: Treatment options discussed with patient and they wish to proceed with surgical management. Risks, benefits and alternatives to surgery including but not limited to infection, DVT, pain, stiffness, need for revision surgery, damage to blood vessels, damage to nerves, PE, , were discussed with the patient and they wish to proceed. Plan on left reverse total shoulder arthroplasty scheduled for 10/25/23 at [facility] with Dr. Martinez. All questions answered. Patient will follow up post op. History of Present Illness Chief Complaint: Left shoulder pain Primary Care Provider: Cr Adams DO 82yo male with PMHx significant for BPH, anemia who presents with ongoing left shoulder pain and dysfunction. Symptoms are interfering with his daily activity. He has failed conservative measures and would like to proceed with surgery. Patient denies headaches, sweats, fevers, chills, double vision, blurred vision, cough, sore throat, dysphagia, chest pain, sob, wheezing, n/v/d/c, numbness, tingling, fatigue, urinary symptoms, mood disorders. ROS positive for left shoulder pain and stiffness. Allergies Allergy/AdvReac Type Severity Reaction Status Date / Time adhesive Allergy Severe Foam tape- Verified 09/28/23 14:58 ripped skin off Home Medications Medication Instructions Recorded Confirmed Type right afo brace #1 ea 12/22/21 04/28/23 Rx grabber #1 ea 10/03/22 04/28/23 Rx mupirocin 2 % topical ointment 1 applic topical BID PRN Skin 01/18/23 09/21/23 History Irritation cephalexin 500 mg capsule 500 mg PO TID #90 caps 07/16/23 09/21/23 Rx acetaminophen 500 mg tablet 500 mg PO TID PRN Pain 08/01/23 09/21/23 History cholecalciferol (vitamin D3) 50 2,000 units PO QAM 09/21/23 09/21/23 History mcg (2,000 unit) tablet wqmsgggj-ddj-olvxl acid 0.4 1 tab PO QAM 09/21/23 09/21/23 History mg-lycopene 300 mcg-lutein 250 mcg tablet (Centrum Silver) prednisone 5 mg tablet 5 mg PO Q OTHER DAY PRN Pain 09/21/23 09/21/23 History tamsulosin 0.4 mg capsule 0.8 mg PO QAM 09/21/23 09/21/23 History vitamin B complex 1 tab PO QAM 09/21/23 09/21/23 History Past Med/Surg History Medical History Anemia Follows with hematology (Dr. Jaron Crawford/Jackson) Hgb ranges from 9-11 BPH with obstruction/lower urinary tract symptoms Elevated blood sugar HgbA1C 07/2023: 6.2% Hearing loss + hearing aids Hx of renal calculi Hx: UTI (urinary tract infection) 2021 > became septic, has been on chronic abx treatment since Osteoarthritis Prednisone PRN for "joint pain" Rare use, no recent use Spinal stenosis Surgical History H/O lithotripsy History of hernia repair History of reverse total replacement of right shoulder joint History of total left hip arthroplasty History of total right hip arthroplasty History of transesophageal echocardiography (BECKY) [place] [facility] [facility] [place] of [place] Family History Sister Cancer Mother Cancer Father Myocardial infarction Denies family history of Ovarian cancer Prostate cancer Breast cancer Colorectal cancer Social History Smoking Status: Former smoker Tobacco Type: Cigarettes Smoking End Date: Quit 40 years ago; Second Hand Exposure: No; Do You Dip or Chew Tobacco: No; Tobacco Cessation Education Requested by Patient: No Hx Alcohol Use: No (None for 30 years ago) Hx Substance Use: No Preferred Language: Ecuadorean Communication Ability: Effective Molasses And Caramel Operator Required: No Beliefs That Will Affect Care: None marital status: Current Living Situation: Spouse current occupational status: employed current occupation: [employer] How many Children do You have: 3 Other Information That Helps Us Care for You: No Feels Safe at Home: Yes Safety Concerns: Feels Safe At This Time Childhood Exposure to Second-Hand Smoke: No Dental Care, Regularly: Yes Physical Activity Frequency: Daily Seatbelt Use: always Sunscreen Use: No Assistive Devices: Denture - Upper, Denture - Lower and Glasses Review of Systems All systems reviewed & are unremarkable except as noted in HPI & below Physical Exam Constitutional: well developed and well nourished; no acute distress Eyes: PERRL, conjunctivae normal, anicteric sclerae ENMT: external ear and nose normal, oropharynx normal Neck: trachea midline, no thyromegaly Respiratory: normal respiratory effort, lungs clear to auscultation Cardiovascular: RRR, no murmur, no edema Musculoskeletal: Left shoulder: Atrophy noted. Decreased ROM-10 degrees of active abduction, 10 degrees of active FF. Weakness with strength testing. There is some activation of deltoid with active motion of his shoulder. Positive belly press. Pseudoparalytic left shoulder. Skin: no rashes, warm and dry Neurologic: patellar DTR's 2+ bilat, sensation intact Psychiatric: A+Ox3, euthymic affect Results & Data Diagnostic Findings Left shoulder radiographs demonstrate Humeral head elevation with moderately advanced arthritic changes glenohumeral joint with periarticular osteophyte formation. There is subchondral cysts within the proximal humerus. MRI demonstrates massive retracted tear of rotator cuff.
[~2023-10-25 10:41] MED LIST changes: -ASPEC325 PO; -B-CO-25 PO; +BUPIVACAINE 0.5 % 5 MG/1 ML PF 10ML VIAL ONE; -CHOL100010 PO; -CLB200 PO; -ESTER C PO; -MULTTAB PO; -OXYSR10 PO; -RXC5 PO; -TADA5TAB11 PO; -TAMS0.4C38 PO
[2023-10-25] MEDS: LR 60ML/HR IV SCH (11:35)
[2023-10-25] MEDS: LR 15ML/HR IV SCH (11:36)
[2023-10-25] MEDS: GABAPENTIN 300 MG CAP PO SCH (11:36)
[2023-10-25] MEDS: FAMOTIDINE 20 MG TAB PO SCH (11:36)
[2023-10-25] MEDS: CeleBREX 200 MG CAP PO SCH (11:36)
[2023-10-25] MEDS: METOCLOPRAMIDE HCL 10 MG TABLET PO SCH (11:36)
[2023-10-25] MEDS: dexAMETHasone**PF** 10 MG/ML VIAL IV SCH (11:37)
[2023-10-25] MEDS: ACETAMINOPHEN 500 MG TAB PO SCH ×2 (11:37→22:29)
[2023-10-25] MEDS: DEXTROSE 50% 50 ML SYRINGE IV ONE ×2 (12:11→12:13)
[2023-10-25] MEDS ORDERED: HYDROCORTISONE SOD SUCCINATE 100 MG/2 ML VIAL ONE (12:18)
[2023-10-25] MEDS ORDERED: ONDANSETRON INJ 2 MG/ML 2 ML VIAL ONE (12:18)
[2023-10-25] MEDS ORDERED: ROCURONIUM BROMIDE 10 MG/ML 5 ML VIAL IV ONE ×3 (12:18→15:41)
[2023-10-25] MEDS ORDERED: PROPOFOL IV EMULSION 10 MG/ML 20 ML VIAL IV ONE (12:18)
[2023-10-25] MEDS ORDERED: MIDAZOLAM HCL 1 MG/ML 2ML VIAL ONE (12:19)
[2023-10-25] MEDS ORDERED: fentaNYL citrate PF 100 MCG/2 ML VIAL ONE (12:19)
[2023-10-25] MEDS: TRANEXAMIC ACID 1,000 MG **IV Pre-op IV SCH (13:05)
--- NOTE | 2023-10-25 13:08 | History & Physical Bridge Note ---
Date of Service October 25, 2023 History & Physical Bridge Note I have examined the patient, reviewed the History & Physical and in the interval since the performance of the History & Physical I have noted the following changes of clinical significance: no changes noted
[2023-10-25] MEDS: ceFAZolin 2000MG 2,000 MG/15 ML SYR IV SCH (13:44)
[2023-10-25] MEDS ORDERED: fentaNYL citrate PF 100 MCG/2 ML VIAL IV PRN (14:13)
[2023-10-25] MEDS ORDERED: ONDANSETRON INJ 2 MG/ML 2 ML VIAL IV PRN ×2 (14:13→18:33)
[2023-10-25] MEDS ORDERED: ePHEDrine sulfate 50 MG/ML AMP IV PRN (14:13)
[2023-10-25] MEDS ORDERED: FLUMAZENIL 0.1 MG/1 ML 10 ML VIAL IV PRN (14:13)
[2023-10-25] MEDS ORDERED: HYDROmorphone INJ 1 MG/ML SYRINGE IV PRN (14:13)
[2023-10-25] MEDS ORDERED: LABETALOL HCL IV 5 MG/ML 20ML IV PRN (14:13)
[2023-10-25] MEDS ORDERED: ATROPINE SULFATE 0.1 MG/ML 10ML SYR IV PRN (14:13)
[2023-10-25] MEDS ORDERED: PROMETHAZINE HCL 6.25 MG in SODIUM CHLORIDE 0.9% 50 ML IV PRN (14:13)
[2023-10-25] MEDS ORDERED: NALOXONE HCL 0.4 MG/1 ML VIAL/CARP IV PRN ×2 (14:13→18:33)
[2023-10-25] MEDS ORDERED: DEXAMETHASONE SOD INJ 4 MG/ML VIAL ONE (16:20)
[2023-10-25] MEDS: TRANEXAMIC ACID 1,000 MG **IV Intra-op IV SCH (16:23)
[2023-10-25] MEDS ORDERED: SUGAMMADEX SODIUM 200 MG/2 ML VIAL IV ONE (16:27)
--- NOTE | 2023-10-25 16:56 | Post Operative Brief Note ---
Immediate Post Op Note v1 Date of Surgery October 25, 2023 Pre & Post Diagnosis Operation Date: 10/25/23 12:45 Pre-Op Diagnosis: Left Shoulder Osteoarthritis glenohumeral joint, chronic rotator cuff tear, rotator cuff arthropathy, proximal biceps rupture.. Post-Op Diagnosis: Left Shoulder Osteoarthritis glenohumeral joint, chronic rotator cuff tear, rotator cuff arthropathy, proximal biceps rupture, chondrocalcinosis steroid deposition versus calcium pyrophosphate disease. I identified the patient and participated in the time-out.: Yes Procedure Operation Date: 10/25/23 12:45 Actual Procedures p Left Shoulder Reverse Total Arthroplasty(Left) - Sanjay Martinez MD Surgeon Sanjay Martinez MD Urban Renewal Manager Octavio FERNANDEZ Estimated Blood Loss 200 Findings Consistent with Post-Op Diagnosis Specimens Calcified capsular tissue Humeral head cut Drains Hemovac Drain Anesthesia Type General Regional Complications none Disposition Disposition: Recovery Room Overlapping Procedure I was immediately available: during the entire case.
--- NOTE | 2023-10-25 17:36 | Operative Report ---
Post Operative Report Pre & Post Diagnosis Operation Date: 10/25/23 12:45 Pre-Op Diagnosis: Left shoulder osteoarthritis glenohumeral joint, chronic rotator cuff tear, rotator cuff arthropathy, proximal biceps rupture Post-Op Diagnosis: Left shoulder osteoarthritis glenohumeral joint, chronic rotator cuff tear, rotator cuff arthropathy, proximal biceps rupture, chondrocalcinosis steroid deposition versus calcium pyrophosphate disease I identified the patient and participated in the time-out.: Yes Procedure Operation Date: 10/25/23 12:45 Actual Procedures p Left Shoulder Reverse Total Arthroplasty(Left) - Sanjay Martinez MD Surgeon Sanjay Martinez MD Lithograph Operator Octavio FERNANDEZ Estimated Blood Loss 200 Findings Consistent with Post-Op Diagnosis Specimens Calcified capsular tissue and humeral head cut Drains 2 Hemovac Anesthesia Type General Regional Complications none Disposition Disposition: Recovery Room Indications 82-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 History of left shoulder surgery in the past with failed rotator cuff repair with chronic rotator cuff arthropathy now with superior migration and superior wear anterior superior escape and limited functional ability. Patient has advanced rotator cuff arthropathy with some bone loss. Description of Procedure The patient was taken to the operating room and anesthetized under regional block and general anesthetic. The patient was positioned on the operating table in a 30 beachchair position with a towel roll under the medial border of the left scapula. The arm was draped free to be able to manipulate the shoulder as needed. The left upper extremity was prepped and draped in usual sterile fash ion. Exam demonstrated old transverse scar along the lateral deltoid. A thin arm with large osteophytes of the humerus palpable underneath the deltoid. Passive range of motion was 40 degrees flexion and 40 degrees abduction and 70 degrees internal and external rotation. An anterior deltopectoral approach was performed. A longitudinal incision was made in the deltopectoral interval. The skin was incised sharply. Subcutaneous flaps were elevated off the fascia. The cephalic vein was dissected out and retracted lateral with the deltoid. The clavipectoral fascia was divided at the lateral margin of the conjoined tendon and extended up to the CA ligament. The following findings were noted: There was scarred bursa tissue. The bursa tissue extended over the entire humeral head which was displaced anteriorly superiorly. There was a chronic subscapularis tendon tear with small amount of capsular tissue only attached inferiorly along the head neck area. The supraspinatus tendon was torn and retracted the infraspinatus tendon was torn retracted the teres minor was then had tendinopathy and there was minimal teres minor tissue as well. Biceps tendon was previously torn and retracted. There were large osteophytes with a very large humeral head due to the surrounding osteophytes. Humeral head was grade 4 eburnated bone glenoid was eburnated bone with bone loss upper aspect with superior posterior bone wear. There was a very large posterior osteophyte on the glenoid.. The remaining capsular tissue was released with a subperiosteal peel technique and the humeral head was externally rotated and the capsule was released along the inferior neck of the humerus. Retractors were readjusted and the inferior osteophytes were all resected using an artist chisel and a rongeur. Rongeur was used to resect the other surrounding osteophytes. The chronic bursa tissue was resected.. A Fukuda retractor was placed into the joint retracting the humeral head posterior. The labrum was resected. an anterior-inferior and posterior inferior capsular release were performed with electrocautery and a Chaudhari elevator on bone with the axillary nerve protected inferiorly by the retractor. Attention was then taken to the humeral preparation. The cutting guide was placed into the humeral head. It was positioned at 30 of retroversion. Oscillating saw was used to resect the humeral head giving the cut above the level of the posterior rotator cuff insertion site. The humerus was then prepared for the stem. I used the ascend flex stem from [facility]. The sizing broaches were used followed by trial broaches up to a size 4B along which had the appropriate fit and fill. The appropriate sized cut protector was placed. The humerus was then retracted posterior to the glenoid. The glenoid was sized for a 29 full wedge baseplate based on preoperative blueprint templating. The offset was at the 1 o'clock position. The custom guidepin guide was placed as per the model and preoperative CT scan templating and the central smooth guidepin was inserted. The reamer for the 29 full wedge 15 degree baseplate was used. The reamer for the central boss was used. The depth gauge was used to measure for the central screw. The Tornier perform 29 full wedge 15 degree glenoid baseplate was screwed into position. Prior to fully seating the implant I did place some cancellous bone graft from the humeral head cut underneath the edge of the wedged area of the component superior posteriorly. The baseplate was fully tightened down at this time. The base plate was transfixed with superior compression screw followed by inferior anterior and posterior locking screws. The fan reamer was used for the 42 millimeter glenoid sphere. After irrigation the 42 centered glenoid sphere was impacted onto the baseplate and the screw was tightened. Attention was taken back to the humerus. The cut protector was removed and the +0 high offset humeral tray trial was assembled to the trial stem rotated appropriately to get bony coverage and then screwed in position. A trial reduction was performed. With a +6 trial insert there was too much proximal migration to reduce the implant. The trial implant was removed and the neck cut revised. This process was performed 1 more time until we removed enough neck to be able to reduce the implant. A small V shaped chip occurred during sawing off the final revision neck cut but it was not full- thickness. I placed a #5 FiberWire Nice knot around this area for security prior to trialing and placing the final component in. Because further neck cuts were required we had to downsize the stem to a size 2B long. A 42, +6 mm reversed trial insert demonstrated good stability and no shuck. The trials were removed. The final component was assembled. The final component was Tornier ascend flex 2B long stem a send old to the +0 high offset humeral tray and a 42 mm, +6 mm reversed polyethylene insert. This was then impacted into the humerus with a tight press-fit. It was reduced to the glenoid sphere. The pectoralis was repaired with #2 FiberWire [id number] sutures reinforcing the biceps tendon tenodesis. The arm was taken through a range of motion which demonstrated 90 degrees forward flexion 70 degrees abduction 70 degrees internal and external rotation. The implant was stable through the range of motion test ed. The wound was copiously irrigated. 2 Hemovac drains were placed. The deltopectoral interval was closed with [id number] #1 Vicryl sutures. The subcutaneous tissues were closed with 2-0 Vicryl sutures. The skin was closed with bro. Sterile dressings were applied and a shoulder immobilizer .Octavio FERNANDEZ my physician cafe assistant assisted in the procedure to the entire procedure including patient positioning arm positioning prepping and draping soft tissue retraction instrument management suture management and performed the subcutaneous and skin closure and will participate in the postoperative care of the patient. I attest to the content of the Intraoperative Record and any orders documented therein. Any exceptions are noted below.
--- NOTE | 2023-10-25 18:08 | Anesthesiology Progress Note ---
Date of Service October 25, 2023 Anesthesia Post Procedure Vital Signs Vital Signs: Temp Pulse Resp BP Pulse Ox O2 Del Method O2 Flow Rate 10/25/23 18:00 36.4 C L 79 17 117/63 97 Room Air 10/25/23 17:50 36.4 C L 76 15 125/66 96 Room Air 10/25/23 17:40 36.4 C L 79 16 126/69 100 Room Air 10/25/23 17:30 78 16 120/66 100 Oxymask 3 10/25/23 17:20 78 15 119/68 100 Oxymask 3 10/25/23 17:10 36.0 C L 74 15 124/64 100 Oxymask 5 10/25/23 17:01 36.0 C L 75 16 123/65 100 Oxymask 7 10/25/23 11:05 36.8 C 92 H 20 141/79 H 95 Room Air Transfer of Care Handoff Completed per policy Notes Mental Status: alert / awake / arousable Patient Amnestic to Procedure: Yes Nausea / Vomiting: adequately controlled Pain: adequately controlled Airway Patency, RR, SpO2: stable & adequate BP & HR: stable & adequate Hydration State: stable & adequate Anesthetic Complications: no major complications apparent and Pt Satisfied with anesthetic care
--- NOTE | 2023-10-25 18:25 | XRay Report ---
XR shoulder LT min 2V routine CLINICAL HISTORY: Post shoulder surgery TECHNIQUE: 3 views of the left shoulder were obtained. Comparison: None available at the time of this dictation. FINDINGS: Patient is status post shoulder arthroplasty with expected postsurgical changes including soft tissue swelling and subcutaneous emphysema. No periarticular lucency or hardware fracture is seen. IMPRESSION: Expected postoperative appearance status post placement of shoulder arthroplasty. ACT 112: Negative or not required by law. Electronically signed by: Albert Briggs M.D. 10/25/2023 6:23 PM
[2023-10-25] MEDS ORDERED: bisacodyL 10 MG SUPP PR PRN (18:33)
[2023-10-25] MEDS ORDERED: METOCLOPRAMIDE HCL INJ 5 MG/ML 2 ML VIAL IV PRN (18:33)
[2023-10-25] MEDS ORDERED: HYDROmorphone INJ 0.5 MG/0.5 ML SYR IV PRN (18:33)
[2023-10-25] MEDS ORDERED: MAGNESIUM HYDROXIDE SUSP 30 ML UDC PO PRN (18:33)
[2023-10-25] MEDS ORDERED: oxyCODONE HCL IR 5 MG TAB (IMMEDIATE RELEASE) PO PRN (18:33)
[2023-10-25] MEDS ORDERED: predniSONE 5 MG TAB PO PRN (18:33)
--- NOTE | 2023-10-25 19:02 | Hospitalist Consultation ---
Date of Consultation October 25, 2023 Assessment & Plan (1) Status post reverse arthroplasty of left shoulder: VTE/bowel/pain management per primary orthopedic team (2) BPH (benign prostatic hyperplasia): Continue tamsulosin (3) Anemia: Follows with hematology (Dr. Jaron Crawford/Jackson) managed with regular Procrit injections. Hgb ranges from 9-11 Monitor with a.m. labs (4) Chronic antibiotic suppression: Chronic cephalexin for MSSA bacteremia (septic arthritis L4-5) June 2021 IV cefazolin given manjinder-operatively, resume routine chronic suppression with cephalexin tomorrow. Plan Thank you for the consult will review patient with a.m. labs. History of Present Illness Reason for Consultation: post op management Attending Physician: Sanjay Martinez MD History of Present Illness Jose Pardo is an 20-year-old male POD#0 left shoulder reverse total arthroplasty performed by Dr. Martinez earlier today. Estimated blood loss 200 mL. General regional anesthesia. No complications noted. No acute concerns or questions from the patient. Allergies Allergy/AdvReac Type Severity Reaction Status Date / Time adhesive AdvReac Severe Foam tape- Verified 10/25/23 11:29 ripped skin off Home Medications Medication Instructions Recorded Confirmed Type right afo brace #1 ea 12/22/21 04/28/23 Rx grabber #1 ea 10/03/22 04/28/23 Rx mupirocin 2 % topical ointment 1 applic topical BID PRN Skin 01/18/23 10/25/23 History Irritation cephalexin 500 mg capsule 500 mg PO TID #90 caps 07/16/23 10/25/23 Rx acetaminophen 500 mg tablet 500 mg PO TID PRN Pain 08/01/23 10/25/23 History cholecalciferol (vitamin D3) 50 2,000 units PO QAM 09/21/23 10/25/23 History mcg (2,000 unit) tablet quympdzv-nob-kjfup acid 0.4 1 tab PO QAM 09/21/23 10/25/23 History mg-lycopene 300 mcg-lutein 250 mcg tablet (Centrum Silver) prednisone 5 mg tablet 5 mg PO Q OTHER DAY PRN Pain 09/21/23 10/25/23 History tamsulosin 0.4 mg capsule 0.8 mg PO QAM 09/21/23 10/25/23 History vitamin B complex 1 tab PO QAM 09/21/23 10/25/23 History acetaminophen 500 mg tablet 1,000 mg (2 x 500 mg) PO Q8 #60 10/26/23 Rx (Tylenol Extra Strength) tabs oxycodone 5 mg tablet 5 - 10 mg (1 - 2 x 5 mg) PO 10/26/23 Rx .Q4h-6h PRN pain #30 tabs Patient History Medical History Anemia Follows with hematology (Dr. Jaron Crawford/Jackson) Hgb ranges from 9-11 BPH with obstruction/lower urinary tract symptoms Elevated blood sugar HgbA1C 07/2023: 6.2% Hearing loss + hearing aids Hx of renal calculi Hx: UTI (urinary tract infection) 2021 > became septic, has been on chronic abx treatment since Osteoarthritis Prednisone PRN for "joint pain" Rare use, no recent use Spinal stenosis Surgical History H/O lithotripsy History of hernia repair History of reverse total replacement of right shoulder joint History of total left hip arthroplasty History of total right hip arthroplasty History of [facility]es[facility] of [facility] Family History Sister Cancer Mother Cancer Father Myocardial infarction Denies family history of Ovarian cancer Prostate cancer Breast cancer Colorectal cancer Social History Smoking Status: Former smoker Tobacco Type: Cigarettes Smoking End Date: Quit 40 years ago; Second Hand Exposure: No; Do You Dip or Chew Tobacco: No; Tobacco Cessation Education Requested by Patient: No Hx Alcohol Use: No (None for 30 years ago) Hx Substance Use: No Preferred Language: Cymro Communication Ability: Effective Psychiatrist Required: No Beliefs That Will Affect Care: None marital status: Current Living Situation: Spouse current occupational status: employed current occupation: [employer] How many Children do You have: 3 Other Information That Helps Us Care for You: No Feels Safe at Home: Yes Safety Concerns: Feels Safe At This Time Childhood Exposure to Second-Hand Smoke: No Dental Care, Regularly: Yes Physical Activity Frequency: Daily Seatbelt Use: always Sunscreen Use: No Assistive Devices: Denture - Upper, Denture - Lower and Glasses Review of Systems Review of Systems: All systems reviewed & are unremarkable except as noted in HPI & below Physical Exam Constitutional: WD/WN, vitals as above Eyes: + anicteric sclerae; normal pupil size ENMT: external ear and nose normal, oropharynx normal Respiratory: normal respiratory effort, lungs clear to auscultation Cardiovascular: RRR, no murmur, no edema Gastrointestinal (Abdomen): normal bowel sounds, soft, nontender, no hepatosplenomegaly Skin: no rashes, warm and dry Neurologic: moves all extremities (left arm not examined) and awake Psychiatric: A+Ox3, euthymic affect Results & Data Results & Data Vital Signs (Past 12 Hours) Vital Signs Temp Pulse Pulse Resp BP Pulse Ox O2 Del Method 10/25/23 18:25 36.5 C 85 16 134/88 96 Room Air 10/25/23 18:10 89 20 116/68 96 Room Air 10/25/23 18:00 36.4 C L 79 17 117/63 97 Room Air 10/25/23 17:50 36.4 C L 76 15 125/66 96 Room Air 10/25/23 17:40 36.4 C L 79 16 126/69 100 Room Air 10/25/23 17:30 78 16 120/66 100 Oxymask 10/25/23 17:20 78 15 119/68 100 Oxymask 10/25/23 17:10 36.0 C L 74 15 124/64 100 Oxymask 10/25/23 17:01 36.0 C L 75 16 123/65 100 Oxymask 10/25/23 11:05 36.8 C 92 H 20 141/79 H 95 Room Air O2 Flow Rate 10/25/23 18:25 10/25/23 18:10 10/25/23 18:00 10/25/23 17:50 10/25/23 17:40 10/25/23 17:30 3 10/25/23 17:20 3 10/25/23 17:10 5 10/25/23 17:01 7 10/25/23 11:05 PG Care Time/CCT Total # of Minutes Spent Total Time Spent with Patient: Total time spent is greater than 50% in coordination of care (as documented) at patient's floor/unit and/or counseling patient: Coding Level of Care Code 24729 IN/OBS CONSULT LVL 4,60M Diagnoses Status post reverse arthroplasty of left shoulder Z96.612 BPH (benign prostatic hyperplasia) N40.0 Anemia D64.9 Chronic antibiotic suppression Z79.2
[2023-10-25] MEDS: SODIUM CHLORIDE 0.9% 1,000 ML IV SCH (20:03)
[2023-10-25] MEDS: SENNA 8.6 MG TAB PO SCH (20:07)
[2023-10-25] MEDS: DOCUSATE SODIUM 100 MG CAP PO SCH (20:07)
[2023-10-25] MEDS: ceFAZolin 1000MG 1,000 MG/7.5 ML SYR IV SCH (22:30)
--- NOTE | 2023-10-26 07:30 | Orthopedic Progress Note ---
Date of Service October 26, 2023 Assessment & Plan (1) Status post reverse arthroplasty of left shoulder: Plan: Postop day #1 left reverse total shoulder arthroplasty -PT/OT: No shoulder range of motion at this time. May do elbow/wrist/hand motion, shrugs, pendulums -DVT prophylaxis: SCDs -Pain management as written -A.m. labs are pending -Discharge planning: Plan to discharge home after therapy today as long as continues to do well. Admission and Anticipated Discharge Date Admission Date: October 25, 2023 Subjective Patient is postop day #1 left reverse total shoulder arthroplasty. He is feeling well this morning. No chest pain, shortness of breath, nausea/vomiting/diarrhea, eggs or dizziness. Block is still effective minimal pain in his shoulder. Review of Systems Review of Systems: All systems reviewed & are unremarkable except as noted in Subjective Physical Exam Physical Exam: Left shoulder: Dressing is clean, dry, intact. Hemovac on suction. Fingers are mobile however decreased wrist extension and wire spring relay adjuster strength. Decreased sensation to fingers. Likely residual from nerve block. Results & Data Vital Signs (Past 12 Hours) Vital Signs Temp Pulse Resp BP Pulse Ox O2 Del Method 10/26/23 07:05 36.7 C 78 16 140/68 94 Room Air 10/26/23 03:38 36.3 C L 84 18 137/78 96 Room Air 10/26/23 01:58 36.4 C L 80 18 145/78 H 96 Room Air 10/25/23 21:58 36.6 C 87 18 145/79 H 96 Room Air 10/25/23 21:00 36.6 C 91 H 18 127/76 97 Room Air 10/25/23 20:03 36.5 C 95 H 18 128/68 97 Room Air
[2023-10-26 08:05] LABS: Basophils # (auto) 0.02 K/uL (0.00-0.20); Basophils % (auto) 0.2 %; Hematocrit (blood only) 32.5 % (42.0-52.0); Hemoglobin 10.1 g/dl (14.0-18.0); Immature Granulocytes # (auto) 0.06 K/uL (0.01-0.20); Immature Granulocytes % (auto) 0.6 %; Lymphocytes # (auto) 0.58 K/uL (1.20-3.40); Lymphocytes % (auto) 6.1 %; Mean Corpuscular Hemoglobin 26.3 pg (25.0-34.0); Mean Corpuscular Hgb Conc 31.1 g/dL (32.0-36.0); Mean Corpuscular Volume 84.6 fL (80.0-100.0); Mean Platelet Volume 9.5 fL (9.4-12.4); Monocytes # (auto) 0.52 K/uL (0.11-0.59); Monocytes % (auto) 5.4 %; Neutrophils # (auto) 8.39 K/uL (1.40-6.50); Neutrophils % (auto) 87.7 %; Platelet Count 209 K/uL (130-400); RDW Coefficient of Variation 13.3 % (11.5-14.5); RDW Standard Deviation 40.7 fL (36.4-46.3); Red Blood Count 3.84 M/uL (4.70-6.10); White Blood Count 9.57 K/ul (4.8-10.8)
[2023-10-26 08:30] LABS: BUN Creatinine Ratio 33.3 (10-20); Creatinine Clr Calc Pharmacy 42.3 ml/min; Est GFR (African American) 67.8 ml/min; Est GFR (Non-African American) 58.5 ml/min; Potassium 4.3 mmol/L (3.5-5.1)
[2023-10-26] MEDS: ADVANCED PROBIOTIC 1250 MG CAPSULE PO SCH (08:33)
[2023-10-26] MEDS: VITAMIN B COMPLEX TAB PO SCH (08:33)
[2023-10-26] MEDS: TAMSULOSIN HCL 0.4 MG CAP PO SCH (08:35)
[2023-10-26] MEDS: CEROVITE ADV FORMULA TAB PO SCH (08:35)
[2023-10-26] MEDS: CHOLECALCIFEROL 25 MCG (1000 UNITS) TAB PO SCH (08:35)
[2023-10-26] MEDS: MULTIVITAMIN TAB PO SCH (08:35)
--- NOTE | 2023-10-26 13:06 | Electrocardiogram Report ---
Test Reason : Blood Pressure : / mmHG Vent. Rate : 078 BPM Atrial Rate : 078 BPM P-R Int : 202 ms QRS Dur : 080 ms QT Int : 380 ms P-R-T Axes : 000 -02 044 degrees QTc Int : 433 ms Ectopic atrial rhythm Abnormal ECG Confirmed by Abraham Reyna ([id number]) on 10/26/2023 1:05:43 PM Referred By: Sanjay Martinez Confirmed By:Daniel Reyna
[2023-10-26] MEDS ORDERED: cephALEXin 500 MG CAP PO SCH (14:00)
--- NOTE | 2023-10-26 15:17 | Discharge Summary ---
Date of Service October 26, 2023 Admission HPI Per Admitting Provider 82yo male with PMHx significant for BPH, anemia who presents with ongoing left shoulder pain and dysfunction. Symptoms are interfering with his daily activity. He has failed conservative measures and would like to proceed with surgery. Patient denies headaches, sweats, fevers, chills, double vision, blurred vision, cough, sore throat, dysphagia, chest pain, sob, wheezing, n/v/d/c, numbness, tingling, fatigue, urinary symptoms, mood disorders. ROS positive for left shoulder pain and stiffness. Admission Exam Per Admitting Provider Constitutional: well developed and well nourished; no acute distress Eyes: PERRL, conjunctivae normal, anicteric sclerae ENMT: external ear and nose normal, oropharynx normal Neck: trachea midline, no thyromegaly Respiratory: normal respiratory effort, lungs clear to auscultation Cardiovascular: RRR, no murmur, no edema Musculoskeletal: Left shoulder: Atrophy noted. Decreased ROM-10 degrees of active abduction, 10 degrees of active FF. Weakness with strength testing. There is some activation of deltoid with active motion of his shoulder. Positive belly press. Pseudoparalytic left shoulder. Skin: no rashes, warm and dry Neurologic: patellar DTR's 2+ bilat, sensation intact Psychiatric: A+Ox3, euthymic affect Principal Diagnosis Left shoulder rotator cuff arthropathy Discharge Exam Left shoulder: Dressing is clean, dry, intact. Hemovac on suction. Fingers are mobile however decreased wrist extension and tape calender strength. Decreased sensation to fingers. Likely residual from nerve block. Discharge Data Allergies Allergy/AdvReac Type Severity Reaction Status Date / Time adhesive AdvReac Severe Foam tape- Verified 10/25/23 11:29 ripped skin off Consultations 10/20/23 15:14 Consult Hospitalist Routine Procedures Performed Operation Date: 10/25/23 12:45 Actual Procedures p Left Shoulder Reverse Total Arthroplasty(Left) - Sanjay Martinez MD Ordered Studies 10/25/23 05:00 US - OR guided needle placemen Routine Hospital Course (1) Status post reverse arthroplasty of left shoulder: Postop day #1 left reverse total shoulder arthroplasty -PT/OT: No shoulder range of motion at this time. May do elbow/wrist/hand motion, shrugs, pendulums -DVT prophylaxis: SCDs -Pain management as written -A.m. labs are pending -Discharge planning: Plan to discharge home after therapy today as long as continues to do well. Lab Results 10/25/23 10/25/23 10/26/23 Range/Units 11:39 12:30 07:22 WBC 9.57 (4.8-10.8) K/ul RBC 3.84 L (4.70-6.10) M/uL Hgb 10.1 L (14.0-18.0) g/dl Hct 32.5 L (42.0-52.0) % MCV 84.6 (80.0-100.0) fL MCH 26.3 (25.0-34.0) pg MCHC 31.1 L (32.0-36.0) g/dL RDW Std Deviation 40.7 (36.4-46.3) fL RDW Coeff of Víctor 13.3 (11.5-14.5) % Plt Count 209 (130-400) K/uL MPV 9.5 (9.4-12.4) fL Immature Gran % (Auto) 0.6 % Neut % (Auto) 87.7 % Lymph % (Auto) 6.1 % [place] % (Auto) 5.4 % Eos % (Auto) 0.0 % Baso % (Auto) 0.2 % Neut # (Auto) 8.39 H (1.40-6.50) K/uL Lymph # (Auto) 0.58 L (1.20-3.40) K/uL [place] # (Auto) 0.52 (0.11-0.59) K/uL Eos # (Auto) 0.00 (0.00-0.50) K/uL Baso # (Auto) 0.02 (0.00-0.20) K/uL Immature Gran # (Auto) 0.06 (0.01-0.20) K/uL Sodium 138 (136-145) mmol/L Potassium 4.3 (3.5-5.1) mmol/L Chloride 103 (98-107) mmol/L Carbon Dioxide 29 (21-32) mmol/L Anion Gap 6 (3-11) BUN 39 H (6-23) mg/dl Creatinine 1.17 (0.6-1.4) mg/dl Est Cr Clr Drug Dosing 42.3 ml/min Est GFR ( Amer) 67.8 ml/min Est GFR (Non-Af Amer) 58.5 ml/min BUN/Creatinine Ratio 33.3 H (10-20) Glucose 136 H (70-99(Fasting)) mg/dl POC Glucose 70 131 H (70-99) mg/dl Calcium 9.0 (8.6-10.3) mg/dl Total Time Total Time Spent Total Time Spent (In Minutes): 20 Discharge Plan Discharge Items Patient Disposition: Home - Home Health Services Reason For Visit: POST OP Discharge Diagnosis: Left shoulder rotator cuff arthropathy Activity: Per Instructions section Non-emergency contact: Surgeon Call non-emergency contact if: you have any medication questions, your pain is not controlled, you have a fever, your temperature is above 101, your wound has increased redness and your wound has increased drainage Follow-up/Referrals: Cr Adams DO [Primary Care Provider] - 11/03/23 11:30 am (APPOINTMENT WITH DR ALTAMIRANO) Diet: Regular Addtl Attending Provider Instructions: ACTIVITY RECOMMENDATIONS: SELF CARE INSTRUCTIONS AFTER TOTAL SHOULDER ARTHROPLASTY REVERSE A. You may do daily exercises as taught in physical therapy while in hospital. No lifting with the operative arm. B. You are to wear your sling/immobilizer at all times EXCEPT when performing your daily exercises and for hygiene purposes. C. You may perform dry, daily dressing changes. Please keep your incision covered. You may shower 48 hours after surgery. Do not apply soap or any ointment/lotions directly over incision. Do not soak incision in bath tub/swimming pool. D. You may use ice as needed to operative shoulder. SPECIAL CARE INSTRUCTIONS: VERY IMPORTANT TO READ AND REVIEW A. There are a few signs you need to watch for after you are home. Call [facility] at [phone] if you experience any of the followin. Increased severe shoulder pain. Some pain is expected especially when you exercise. 2. Increased swelling in you shoulder or arm; pain or swelling in either upper extremity. 3. Any fluid drainage from the incision. 4. Shortness of breath or chest pain. B. Please call [facility] at [phone] if you have any questions or concerns about your operation or recovery. C. Call your physician if: 1. Temperature is greater than 101 degrees (F). 2. Pain is not relieved by prescribed pain medications. 3. Increase drainage or redness from incision. 4. Unanswered questions or concerns. FOLLOW UP VISIT: Please call [facility] at [phone] to schedule a follow up appointment with Dr. Martinez or his PA in 12-14 days from your surgery date. Stand-Alone Forms: My [facility] Blink, Smoking Cessation Medications and DC Order Prescriptions: New acetaminophen [Tylenol Extra Strength] 500 mg Tablet 1,000 mg PO Q8 Qty: 60 0RF oxycodone 5 mg Tablet 5 - 10 mg PO .Q4h-6h MDD 6 PRN (Reason: pain) Qty: 30 0RF Rx Instructions: Ongoing therapy, Dr. Martinez supervising Continued (DME) right afo brace See Rx Instructions .Route .MEDSUPPLY Qty: 1 0RF Rx Instructions: As directed (DME) grabber See Rx Instructions .Route .MEDSUPPLY Qty: 1 0RF Rx Instructions: As directed cephalexin 500 mg capsule 500 mg PO TID Qty: 90 5RF Patient Comments: used preventative mupirocin 2 % ointment 1 applic topical BID PRN (Reason: Skin Irritation) prednisone 5 mg tablet 5 mg PO Q OTHER DAY PRN (Reason: Pain) Patient Comments: only takes one every 10-15 days tamsulosin 0.4 mg capsule 0.8 mg PO QAM Rx Instructions: LAST FILLED 06/18/21 FOR 180 TABS/90 DAYS. vitamin B complex tablet 1 tab PO QAM Centrum Silver 0.4-300-250 mg-mcg-mcg tablet 1 tab PO QAM cholecalciferol (vitamin D3) 2,000 unit tablet 2,000 units PO QAM Discontinued acetaminophen 500 mg tablet 500 mg PO TID PRN (Reason: Pain) Patient Comments: uses 3x daily Admission Data Admit Date/Time: 10/25/23 17:04 Attending Provider: Sanjay Martinez Admit Provider: Sanjay Martinez Primary Care Provider: Cr Adams Other Providers: Alfredo Sommer; [facility],Home Health; [facility] Other Interventions: Discharge Summary Assessment (RN) Last Done: 10/26/23 13:20
== END 2023-10-26 13:39 | disposition home health service (06) ==
LOC: 3W 10:41 → ASU 10:41
DX: Z87.442 Personal history of urinary calculi; M11.212 Other chondrocalcinosis, left shoulder; Z79.899 Other long term (current) drug therapy; K44.9 Diaphragmatic hernia without obstruction or gangrene; M75.102 Unspecified rotator cuff tear or rupture of left shoulder, not specified as traumatic; S46.292A Other injury of muscle, fascia and tendon of other parts of biceps, left arm, initial encounter; N40.0 Benign prostatic hyperplasia without lower urinary tract symptoms; Z87.891 Personal history of nicotine dependence; D64.9 Anemia, unspecified; M65.812 Other synovitis and tenosynovitis, left shoulder; M19.012 Primary osteoarthritis, left shoulder; M48.00 Spinal stenosis, site unspecified; Z91.048 Other nonmedicinal substance allergy status